=== PATIENT | male | born 1945 | race Caucasian/White ===

== ENCOUNTER 2016-07-31 12:53 | Emergency (ER) | payer MEDICARE, BC ==
--- NOTE | 2016-07-31 10:40 | EDM.PDOC ---
ED HISTORY OF PRESENT ILLNESS - General Chief Complaint: Chest Pain Stated Complaint: AMB Time Seen by Provider: 07/31/16 10:35 Source of Information: Reports: Patient History Limitations: Reports: No limitations - History of Present Illness INITIAL COMMENTS - FREE TEXT/NARRATIVE: Pt states that he had radiation yesterday for cancer and today he had diarrhea and chest pain. States that he called his oncologist and was told to go to ER. denies chest pain currently. States that he just feels tired. Symptom Onset Date: 07/31/16 Timing/Duration: Reports: Resolved prior to arrival Severity: moderate Location, General: Reports: chest Quality: Reports: Ache Improves with: Reports: Rest Associated Symptoms (General): Reports: shortness of breath, other (diarrhea) - Related Data Allergies/ADRs: Allergies Allergy/AdvReac Type Severity Reaction Status Date / Time No Known Allergies Allergy Verified 07/31/16 10:50 Home Meds: Home Meds Ascorbic Acid [Vitamin C] 1,000 mg PO .Q48H 06/07/13 [History] Aspirin [Carlie Chewable Aspirin] 81 mg PO DAILY 06/07/13 [History] Benazepril [Lotensin] 20 mg PO DAILY 06/07/13 [History] Multivitamin [Multivitamins] 1 each PO DAILY 06/07/13 [History] NIFEdipine [Procardia XL] 90 mg PO DAILY 06/07/13 [History] Vitamin E 400 unit PO DAILY 06/07/13 [History] glipiZIDE [Glucotrol] 5 mg PO DAILY 06/07/13 [History] Metoprolol Tartrate 50 mg PO BID 05/12/16 [History] Simvastatin [Zocor] 40 mg PO BEDTIME 05/12/16 [History] Testosterone Cypionate [Depo-Testosterone] 200 mg IM .ONCE A MONTH 05/12/16 [ History] Past Medical History HEENT History: Reports: Hard of hearing Cardiovascular History: Reports: Hypertension Gastrointestinal History: Reports: GERD Genitourinary History: Reports: Other (see below) Other Genitourinary History: 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 Endocrine/Metabolic History: Reports: Diabetes, type II - Past Surgical History GI Surgical History: Reports: Appendectomy Musculoskeletal Surgical History: Reports: Other (see below) Other Musculoskeletal Surgeries/Procedures:: back surgery Social & Family History - Family History Family Medical History: Noncontributory - Tobacco Use Smoking Status *Q: Former Smoker Years of Tobacco use: 30 Packs/Tins Daily: 1 Second Hand Smoke Exposure: No - Caffeine Use Caffeine Use: Reports: Coffee, Soda, Tea - Alcohol Use Days Per Week of Alcohol Use: 7 Number of Drinks Per Day: 1 Total Drinks Per Week: 7 - Recreational Drug Use Recreational Drug Use: No Drug Use in Last 12 Months: No ED ROS GENERAL - Review of Systems Review Of Systems: See Below Constitutional: Reports: malaise, fatigue Respiratory: Reports: Shortness of Breath Cardiovascular: Reports: Chest pain GI/Abdominal: Reports: Diarrhea ED EXAM, GENERAL - Physical Exam Exam: See Below Exam Limited By: No limitations General Appearance: alert, WD/WN, no apparent distress Respiratory/Chest: no respiratory distress, lungs clear, normal breath sounds, no accessory muscle use, chest non-tender Cardiovascular: normal peripheral pulses, regular rate, rhythm, no edema, no gallop, no JVD, no murmur, no rub Peripheral Pulses: 4+: dorsalis pedis (L), dorsalis pedis (R) GI/Abdominal: normal bowel sounds, soft, non tender, no organomegaly, no distention, no abnormal bruit, no mass Neurological: alert, oriented, CN II-XII intact, normal cognition, no motor/ sensory deficits Skin Exam: Warm, Dry, Intact, Normal color, No rash Course - Vital Signs Last Recorded V/S: Last Vital Signs Temp 97.6 F 07/31/16 10:05 Pulse 111 H 07/31/16 10:05 Resp 20 07/31/16 10:05 BP 91/54 L 07/31/16 10:05 Pulse Ox 89 L 07/31/16 10:05 - Orders/Labs/Meds Orders: Active Orders 24 hr Category Date Time Status Cardiac Monitoring [RC] . DIRECTED Care 07/31/16 10:27 Active EKG 12 Lead [EKG Documentation Completion] [RC] STAT Care 07/31/16 11:23 Active EKG Documentation Completion [RC] STAT Care 07/31/16 10:27 Active CULTURE BLOOD [BC] Stat Lab 07/31/16 10:46 Received CULTURE BLOOD [BC] Stat Lab 07/31/16 10:51 Received UA W/MICROSCOPIC [URIN] Stat Lab 07/31/16 10:27 Uncollected Ciprofloxacin in D5W [Cipro in D5W 400 MG/200 ML] 400 Med 07/31/16 12:45 Ordered mg Premix Bag 1 bag IV ONETIME Sodium Chloride 0.9% [Normal Saline] 1,000 ml Med 07/31/16 12:14 Active IV .BOLUS Sodium Chloride 0.9% [Normal Saline] 1,000 ml Med 07/31/16 11:25 Active IV ONETIME Sodium Chloride 0.9% [Saline Flush] Med 07/31/16 10:27 Active 10 ml FLUSH ASDIRECTED PRN Blood Culture x2 Reflex Set [OM.PC] Stat Oth 07/31/16 10:38 Ordered Saline Lock Insert [OM.PC] Stat Ot 07/31/16 10:27 Ordered Medication Orders Sodium Chloride (Normal Saline) 1,000 mls @ 50 mls/hr IV ONETIME ONE Stop: 08/01/16 07:24 Sodium Chloride (Normal Saline) 1,000 mls @ 999 mls/hr IV .BOLUS ONE Stop: 07/31/16 13:14 Last Admin: 07/31/16 12:16 Dose: 999 mls/hr Ciprofloxacin/Dextrose 400 mg/ (Premix) 200 mls @ 200 mls/hr IV ONETIME ONE Stop: 07/31/16 13:44 Sodium Chloride (Saline Flush) 10 ml FLUSH ASDIRECTED PRN PRN Reason: Keep Vein Open Labs: Laboratory Tests 07/31/16 07/31/16 07/31/16 Range/Units 10:38 10:38 10:38 WBC 9.1 (5.0-10.0) 10^3/uL RBC 4.42 L (4.6-6.2) 10^6/uL Hgb 14.3 (14.0-18.0) g/dL Hct 42.1 (40.0-54.0) % MCV 95.2 (80-100) fL MCH 32.4 (27.0-34.0) pg MCHC 34.0 (33.0-35.0) g/dL Plt Count 148 L (150-450) 10^3/uL Neut % (Auto) 90.6 H (42.2-75.2) % Lymph % (Auto) 4.3 L (20.5-50.1) % [place] % (Auto) 4.3 (2-8) % Eos % (Auto) 0.7 L (1.0-3.0) % Baso % (Auto) 0.1 (0.0-1.0) % PT 9.7 (9.0-12.0) SEC INR 1.0 (0.9-1.2) APTT 22.0 (22.0-34.0) SEC Sodium 141 (135-145) mmol/L Potassium 3.2 L (3.6-5.0) mmol/L Chloride 109 (101-111) mmol/L Carbon Dioxide 22.0 (21.0-31.0) mmol/L Anion Gap 13.2 BUN 24 H (7-18) mg/dL Creatinine 1.2 (0.6-1.3) mg/dL Est Cr Clr Drug Dosing 64.72 mL/min Estimated GFR (MDRD) 60 Glucose 194 H (74-105) mg/dL Lactic Acid (0.5-2.2) mmol/L Calcium 8.3 L (8.4-10.2) mg/dl Phosphorus 2.0 L (2.5-4.6) mg/dL Magnesium 1.6 L (1.8-2.5) mg/dL Creatine Kinase (26-174) IU/L Creatine Kinase Index (0-2.4) % CK-MB (CK-2) (0.4-4.7) ng/mL Troponin I 0.04 H* (0.00-0.02) ng/ml B-Natriuretic Peptide 54 (0-100) pg/ml 07/31/16 07/31/16 Range/Units 10:38 10:38 WBC (5.0-10.0) 10^3/uL RBC (4.6-6.2) 10^6/uL Hgb (14.0-18.0) g/dL Hct (40.0-54.0) % MCV (80-100) fL MCH (27.0-34.0) pg MCHC (33.0-35.0) g/dL Plt Count (150-450) 10^3/uL Neut % (Auto) (42.2-75.2) % Lymph % (Auto) (20.5-50.1) % [place] % (Auto) (2-8) % Eos % (Auto) (1.0-3.0) % Baso % (Auto) (0.0-1.0) % PT (9.0-12.0) SEC INR (0.9-1.2) APTT (22.0-34.0) SEC Sodium (135-145) mmol/L Potassium (3.6-5.0) mmol/L Chloride (101-111) mmol/L Carbon Dioxide (21.0-31.0) mmol/L Anion Gap BUN (7-18) mg/dL Creatinine (0.6-1.3) mg/dL Est Cr Clr Drug Dosing mL/min Estimated GFR (MDRD) Glucose (74-105) mg/dL Lactic Acid 2.7 H (0.5-2.2) mmol/L Calcium (8.4-10.2) mg/dl Phosphorus (2.5-4.6) mg/dL Magnesium (1.8-2.5) mg/dL Creatine Kinase 20 L (26-174) IU/L Creatine Kinase Index 4.0 H (0-2.4) % CK-MB (CK-2) 0.80 (0.4-4.7) ng/mL Troponin I (0.00-0.02) ng/ml B-Natriuretic Peptide (0-100) pg/ml Meds: Medications Generic Name Dose Route Start Last Admin Trade Name Freq PRN Reason Stop Dose Admin Sodium Chloride 1,000 mls @ 50 mls/hr 07/31/16 11:25 Normal Saline IV 08/01/16 07:24 ONETIME ONE Sodium Chloride 1,000 mls @ 999 mls/hr 07/31/16 12:14 07/31/16 12:16 Normal Saline IV 07/31/16 13:14 999 mls/hr .BOLUS ONE Administration Ciprofloxacin/Dextrose 400 mg/ 200 mls @ 200 mls/hr 07/31/16 12:45 Premix IV 07/31/16 13:44 ONETIME ONE Sodium Chloride 10 ml 07/31/16 10:27 Saline Flush FLUSH ASDIRECTED PRN Keep Vein Open Discontinued Medications Generic Name Dose Route Start Last Admin Trade Name Freq PRN Reason Stop Dose Admin Aspirin 324 mg 07/31/16 10:27 07/31/16 11:16 Aspirin PO 07/31/16 10:28 324 mg ONETIME ONE Administration Sodium Chloride 1,000 mls @ 1,000 mls/hr 07/31/16 10:27 07/31/16 10:20 Normal Saline IV 07/31/16 11:26 1,000 mls/hr .BOLUS ONE Administration - Radiology Interpretation Free Text/Narrative:: No acute findings - Re-Assessments/Exams Free Text/Narrative Re-Assessment/Exam: 07/31/16 12:[address] Jackson at [facility] who will accept pt for severe dehydration. Departure - Departure Time of Disposition: 12:48 Disposition: DC/Tfer to [facility] 02 Reason for Transfer *Q: Primary PCI Indicated Condition: good Clinical Impression: Dehydration, severe Forms: ED Department Discharge, Interfacility Transfer EMTALA, ED Summary Discharge - My Orders Last 24 Hours: My Active Orders 07/31/16 10:27 Cardiac Monitoring [RC] . DIRECTED EKG Documentation Completion [RC] STAT UA W/MICROSCOPIC [URIN] Stat Sodium Chloride 0.9% [Saline Flush] 10 ml FLUSH ASDIRECTED PRN Saline Lock Insert [OM.PC] Stat 07/31/16 10:38 Blood Culture x2 Reflex Set [OM.PC] Stat 07/31/16 10:46 CULTURE BLOOD [BC] Stat 07/31/16 10:51 CULTURE BLOOD [BC] Stat 07/31/16 11:23 EKG 12 Lead [EKG Documentation Completion] [RC] STAT 07/31/16 11:25 Sodium Chloride 0.9% [Normal Saline] 1,000 ml IV ONETIME 07/31/16 12:14 Sodium Chloride 0.9% [Normal Saline] 1,000 ml IV .BOLUS 07/31/16 12:45 Ciprofloxacin in D5W [Cipro in D5W 400 MG/200 ML] 400 mg Premix Bag 1 bag IV ONETIME - Assessment/Plan Last 24 Hours: My Active Orders 07/31/16 10:27 Cardiac Monitoring [RC] . DIRECTED EKG Documentation Completion [RC] STAT UA W/MICROSCOPIC [URIN] Stat Sodium Chloride 0.9% [Saline Flush] 10 ml FLUSH ASDIRECTED PRN Saline Lock Insert [OM.PC] Stat 07/31/16 10:38 Blood Culture x2 Reflex Set [OM.PC] Stat 07/31/16 10:46 CULTURE BLOOD [BC] Stat 07/31/16 10:51 CULTURE BLOOD [BC] Stat 07/31/16 11:23 EKG 12 Lead [EKG Documentation Completion] [RC] STAT 07/31/16 11:25 Sodium Chloride 0.9% [Normal Saline] 1,000 ml IV ONETIME 07/31/16 12:14 Sodium Chloride 0.9% [Normal Saline] 1,000 ml IV .BOLUS 07/31/16 12:45 Ciprofloxacin in D5W [Cipro in D5W 400 MG/200 ML] 400 mg Premix Bag 1 bag IV ONETIME
--- NOTE | 2016-07-31 12:02 | CR ---
Clinical history: 71-year-old male chest pain. Interpretation: Generally poor inspiratory effort and some platelike atelectasis in the bases. Normal cardiac silhouette without alveolar edema or dependent effusion. No lung mass, hilar lymphadenopathy or focal lobar pneumonia. No pneumothorax. CONCLUSION: No acute new cardiopulmonary abnormality since CT scan chest 13 May 2016.
[~2016-07-31 12:53] MED LIST: Aspirin 81 MG Tab.Chew PO ONE; Ciprofloxacin in D5W 400 MG in Premix Bag 1 BAG IV ONE; Sodium Chloride 0.9% 1,000 ML IV ONE; Sodium Chloride 0.9% 10 ML Syringe FLUSH PRN
[2016-07-31 12:55] VITALS: BP 91/51
--- NOTE | 2016-09-22 12:20 | EKG ---
07/31/2016 - PADMINI FRANKS - EKG is sinus rhythm with a rate of 89. 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 IMPRESSION: Abnormal EKG as noted above. [facility] /[id number]
--- NOTE | 2016-09-22 12:20 | EKG ---
07/31/2016 - PADMINI FRANKS - TIME: 1035 hours. EKG is sinus rhythm with a rate of 100. Normal SD interval. There is a left axis deviation. There is a right bundle-branch block, and left anterior fascicular block. Abnormal EKG as noted above. [facility] /[id number]
== END 2016-07-31 13:15 ==
LOC: DL.ED 12:53
DX: R19.7 Diarrhea, unspecified (principal); K21.9 Gastro-esophageal reflux disease without esophagitis; E11.9 Type 2 diabetes mellitus without complications; I10 Essential (primary) hypertension; Z87.891 Personal history of nicotine dependence; Z79.899 Other long term (current) drug therapy
CPT/HCPCS: 36415; 71010; 80048; 82550; 82553; 83605; 83735; 83880; 84100; 84484; 85025; 85610; 85730; 87040; 93005; 96361; 96374; 99285; A9270; J0744; J7030; J7050; 93010; 99284

== ENCOUNTER 2017-04-19 13:42 | Emergency (ER) | payer MEDICARE, BC ==
--- NOTE | 2017-04-19 15:35 | EDM.PDOC ---
ED HPI GENERAL MEDICAL PROBLEM - General Chief Complaint: Flank Pain Stated Complaint: [id number] SLIPPED AND HURT RIBS Time Seen by Provider: 04/19/17 15:20 Source of Information: Reports: Patient History Limitations: Reports: No Limitations - History of Present Illness INITIAL COMMENTS - FREE TEXT/NARRATIVE: This 72 yo male patient reports to the ED with right rib/side pain due to a fall 2 days ago. Onset Date: 04/17/17 Duration: Constant Location: Reports: Chest (right ribs ) Quality: Reports: Ache, Dull Severity: Moderate Improves with: Reports: Rest Worsens with: Reports: Movement Context: Reports: Trauma (fall ) Associated Symptoms: Reports: No Other Symptoms Right Chest Pain Score (Numeric/FACES): 6 - Related Data Allergies Allergy/AdvReac Type Severity Reaction Status Date / Time No Known Allergies Allergy Verified 12/04/16 16:46 Home Meds: Home Meds Aspirin [Carlie Chewable Aspirin] 81 mg PO DAILY 06/07/13 [History] Benazepril [Lotensin] 10 mg PO BID 06/07/13 [History] Multivitamin [Multivitamins] 1 each PO DAILY 06/07/13 [History] NIFEdipine [Procardia XL] 30 mg PO BID 06/07/13 [History] glipiZIDE [Glucotrol] 10 mg PO BID 06/07/13 [History] Metoprolol Tartrate 50 mg PO BID 05/12/16 [History] Simvastatin [Zocor] 40 mg PO BEDTIME 05/12/16 [History] Docusate Sodium [Colace] 200 mg PO BID 12/04/16 [History] Methylphenidate HCl [Methylphenidate ER] 10 mg PO DAILY 04/19/17 [History] Pantoprazole [ProTONIX IV] 40 mg PO DAILY 04/19/17 [History] metFORMIN HCl [Metformin HCl] 500 mg PO BEDTIME 04/19/17 [History] Past Medical History HEENT History: Reports: Hard of Hearing, Impaired Vision Cardiovascular History: Reports: High Cholesterol, Hypertension Gastrointestinal History: Reports: GERD Genitourinary History: Reports: Other (See Below) Other Genitourinary History: removal of tumor from a kidney Endocrine/Metabolic History: Reports: Diabetes, Type II Oncologic (Cancer) History: Reports: Brain - Past Surgical History GI Surgical History: Reports: Appendectomy Musculoskeletal Surgical History: Reports: Other (See Below) Other Musculoskeletal Surgeries/Procedures:: weakness, back surgery Social & Family History - Family History Family Medical History: Noncontributory - Tobacco Use Smoking Status *Q: Light Tobacco Smoker Years of Tobacco use: 5 Packs/Tins Daily: 1 Used Tobacco, but Quit: Yes Month Tobacco Last Used: 12 Second Hand Smoke Exposure: No - Caffeine Use Caffeine Use: Reports: Coffee, Soda - Alcohol Use Days Per Week of Alcohol Use: 7 Number of Drinks Per Day: 1 Total Drinks Per Week: 7 - Recreational Drug Use Recreational Drug Use: No Drug Use in Last 12 Months: No Review of Systems - Review of Systems Review Of Systems: ROS reveals no pertinent complaints other than HPI. ED EXAM, GENERAL - Physical Exam Exam: See Below Exam Limited By: No Limitations General Appearance: Alert, WD/WN, Moderate Distress Eye Exam: Bilateral Eye: EOMI, Normal Inspection, PERRL Ears: Normal External Exam, Normal Canal, Hearing Grossly Normal, Normal TMs Nose: Normal Inspection, Normal Mucosa, No Blood Throat/Mouth: Normal Inspection, Normal Lips, Normal Teeth, Normal Gums, Normal Oropharynx, Normal Voice, No Airway Compromise Head: Atraumatic, Normocephalic Neck: Normal Inspection, Supple, Non-Tender, Full Range of Motion Respiratory/Chest: No Respiratory Distress, Lungs Clear, Normal Breath Sounds, No Accessory Muscle Use, Other (right rib tenderness ) Cardiovascular: Normal Peripheral Pulses, Regular Rate, Rhythm, No Edema, No Gallop, No JVD, No Murmur, No Rub GI/Abdominal: Normal Bowel Sounds, Soft, Non-Tender, No Organomegaly, No Distention, No Abnormal Bruit, No Mass (Male) Exam: Deferred Rectal (Males) Exam: Deferred Back Exam: Normal Inspection, Full Range of Motion, NT Extremities: Normal Inspection, Normal Range of Motion, Non-Tender, Normal Capillary Refill, No Pedal Edema Neurological: Alert, Oriented, CN II-XII Intact, Normal Cognition, Normal Gait, Normal Reflexes, No Motor/Sensory Deficits Psychiatric: Normal Affect, Normal Mood Skin Exam: Warm, Dry, Intact, Normal Color, No Rash Lymphatic: No Adenopathy Course - Vital Signs Last Recorded V/S: Last Vital Signs Temp 36.3 C 04/19/17 16:09 Pulse 65 04/19/17 16:09 Resp 16 04/19/17 16:09 BP 129/74 04/19/17 16:09 Pulse Ox 95 04/19/17 16:09 Departure - Departure Time of Disposition: 16:48 Disposition: Home, Self-Care 01 Condition: Fair Clinical Impression: Contusion of rib on right side Qualifiers: Encounter type: initial encounter Qualified Code(s): S20.211A - Contusion of right front wall of thorax, initial encounter - Discharge Information Instructions: Chest Contusion, [id number] Forms: ED Department Discharge Care Plan Goals: The patient was advised of the examination and x-ray results during the visit. The patient was encouraged to continue to be active. If the patient has any additional symptoms or concerns, the patient should follow-up with his primary care facility or return to the emergency department.
--- NOTE | 2017-04-19 16:01 | CR ---
Clinical history: 72-year-old male injured right chest with a fall (rib pain). Interpretation: PA chest and right rib detail films (x2) demonstrate generally poor inspiratory effor t but no sign of acute right rib fracture, underlying lung contusion, ipsilateral dependent pleural e ffusion or right-sided pneumothorax. Multilevel disc disease and chronic arthritic changes of the spine. Left supra clavicular central venous line crosses the midline with the tip directed toward the right atrium. Normal cardiac silhouette without alveolar edema (subtle blunting of the right costophrenic s ulcus). Some lingular scarring or atelectasis. No lung mass or focal lobar pneumonia. CONCLUSION: No new signs of right rib fracture, lung contusion or right pneumothorax when compared to 31 July AP film.
[2017-04-19 16:10] VITALS: BP 129/74
== END 2017-04-19 16:52 | disposition home or self-care (01) ==
LOC: DL.ED 13:42
DX: S20.211A Contusion of right front wall of thorax, initial encounter (principal); I10 Essential (primary) hypertension; E78.00 Pure hypercholesterolemia, unspecified; K21.9 Gastro-esophageal reflux disease without esophagitis; E11.9 Type 2 diabetes mellitus without complications; F17.210 Nicotine dependence, cigarettes, uncomplicated; Z79.84 Long term (current) use of oral hypoglycemic drugs; Z79.82 Long term (current) use of aspirin; Z79.899 Other long term (current) drug therapy; W01.0XXA Fall on same level from slipping, tripping and stumbling without subsequent striking against object, initial encounter
CPT/HCPCS: 71101-RT; 99282; 99283

== ENCOUNTER 2017-06-14 16:53 | Emergency (ER) | payer MEDICARE, BC ==
[2017-06-14 16:59] VITALS: BP 152/78
[2017-06-14] MEDS ORDERED: Magnesium Citrate Solution 296 ML Bottle PO ONE (18:33)
--- NOTE | 2017-06-14 18:56 | EDM.PDOC ---
Scribed by Patrica Harvey 06/14/17 [id number] for Terrence Espinoza MD ED HPI GENERAL MEDICAL PROBLEM - General Chief Complaint: Gastrointestinal Problem Stated Complaint: CONSTIPATION/ CANT PEE Time Seen by Provider: 06/14/17 17:06 Source of Information: Reports: Patient, RN, RN Notes Reviewed History Limitations: Reports: No Limitations - History of Present Illness INITIAL COMMENTS - FREE TEXT/NARRATIVE: C/O unable to pass urine for past 8 hrs, and constipated with last BM 5 days ago. Onset: Gradual Duration: Constant Location: Reports: Abdomen Quality: Reports: Pressure Severity: Severe Improves with: Reports: None Worsens with: Reports: None Associated Symptoms: Reports: No Other Symptoms - Related Data Allergies Allergy/AdvReac Type Severity Reaction Status Date / Time No Known Allergies Allergy Verified 06/14/17 16:58 Home Meds: Home Meds Aspirin [Carlie Chewable Aspirin] 81 mg PO DAILY 06/07/13 [History] Benazepril [Lotensin] 10 mg PO BID 06/07/13 [History] Multivitamin [Multivitamins] 1 each PO DAILY 06/07/13 [History] NIFEdipine [Procardia XL] 30 mg PO BID 06/07/13 [History] glipiZIDE [Glucotrol] 10 mg PO BID 06/07/13 [History] Metoprolol Tartrate 50 mg PO BID 05/12/16 [History] Simvastatin [Zocor] 40 mg PO DAILY 05/12/16 [History] Docusate Sodium [Colace] 200 mg PO BID 12/04/16 [History] Methylphenidate HCl [Methylphenidate ER] 10 mg PO BID 04/19/17 [History] Pantoprazole [ProTONIX IV] 40 mg PO DAILY 04/19/17 [History] metFORMIN HCl [Metformin HCl] 500 mg PO BEDTIME 04/19/17 [History] Past Medical History HEENT History: Reports: Hard of Hearing, Impaired Vision Cardiovascular History: Reports: High Cholesterol, Hypertension Gastrointestinal History: Reports: GERD Genitourinary History: Reports: Other (See Below) Other Genitourinary History: removal of tumor from a kidney Neurological History: Reports: Other (See Below) (Terminal brain tumor: Glioblastoma multiformi) Endocrine/Metabolic History: Reports: Diabetes, Type II Oncologic (Cancer) History: Reports: Brain - Past Surgical History GI Surgical History: Reports: Appendectomy Musculoskeletal Surgical History: Reports: Other (See Below) Other Musculoskeletal Surgeries/Procedures:: weakness, back surgery Social & Family History - Family History Family Medical History: Noncontributory - Tobacco Use Smoking Status *Q: Light Tobacco Smoker Years of Tobacco use: 5 Packs/Tins Daily: 1 Used Tobacco, but Quit: Yes Month Tobacco Last Used: 12 Second Hand Smoke Exposure: No - Caffeine Use Caffeine Use: Reports: Coffee, Soda - Alcohol Use Days Per Week of Alcohol Use: 7 Number of Drinks Per Day: 1 Total Drinks Per Week: 7 - Recreational Drug Use Recreational Drug Use: No Drug Use in Last 12 Months: No ED ROS GENERAL - Review of Systems Review Of Systems: ROS reveals no pertinent complaints other than HPI. ED EXAM, GI/ABD - Physical Exam Exam: See Below General Appearance: Alert, No Apparent Distress Head: Atraumatic, Normocephalic Neck: Normal Inspection Respiratory/Chest: No Respiratory Distress, Lungs Clear, Normal Breath Sounds, No Accessory Muscle Use, Chest Non-Tender Cardiovascular: Normal Peripheral Pulses, Regular Rate, Rhythm, No Edema, No Gallop, No JVD, No Murmur, No Rub GI/Abdominal Exam: Normal Bowel Sounds, Soft, No Distention, Tender (suprapubic) . No: Guarding, Rigid, Rebound (Male) Exam: Normal Inspection Rectal (Males) Exam: Deferred Back Exam: Normal Inspection. No: CVA Tenderness (L), CVA Tenderness (R) Extremities: Normal Inspection Neurological: Alert, No Motor/Sensory Deficits Psychiatric: Normal Mood Skin Exam: Warm, Dry, Intact, Normal Color, No Rash Course - Vital Signs Last Recorded V/S: Last Vital Signs Temp 36.1 C 06/14/17 16:55 Pulse 65 06/14/17 16:55 Resp 18 06/14/17 16:55 BP 152/78 H 06/14/17 16:55 Pulse Ox 96 06/14/17 16:55 - Orders/Labs/Meds Orders: Active Orders 24 hr Category Date Time Status Gonzalez Catheter Insertion [Insert Urinary Catheter] [OM. Care 06/14/17 17:30 Ordered PC] Q24H CULTURE URINE [RM] Stat Lab 06/14/17 17:25 Received Labs: Laboratory Tests 06/14/17 Range/Units 17:25 Urine Color Yellow (YELLOW) Urine Appearance Slightly cloudy (CLEAR) Urine pH 6.0 (5.0-9.0) Ur Specific [place] 1.020 (1.005-1.030) Urine Protein >=300 H (NEGATIVE) Urine Glucose (UA) 100 H (NEGATIVE) Urine Ketones Negative (NEGATIVE) Urine Occult Blood Negative (NEGATIVE) Urine Nitrite Negative (NEGATIVE) Urine Bilirubin Negative (NEGATIVE) Urine Urobilinogen 0.2 (0.2-1.0) mg/dL Ur Leukocyte Esterase Negative (NEGATIVE) Urine RBC 0-5 /HPF Urine WBC 0-5 (0-5/HPF) /HPF Ur Epithelial Cells Not seen /HPF Urine Bacteria Few (0-FEW/HPF) /HPF Hyaline Casts Few H /LPF Urine Mucus Few H /LPF Meds: Medications Discontinued Medications Generic Name Dose Route Start Last Admin Trade Name Freq PRN Reason Stop Dose Admin Magnesium Citrate 300 ml 06/14/17 18:33 Citrate Of Magnesia PO 06/14/17 18:34 ONETIME ONE - Radiology Interpretation Free Text/Narrative:: X-ray abdomen: Air-fluid levels in the colon which could be secondary to colon ileus. No definite sign of obstruction or fecal impaction. See rad report. - Re-Assessments/Exams Free Text/Narrative Re-Assessment/Exam: 06/14/17 18:[address] by RN. Departure - Departure Time of Disposition: 18:37 Disposition: Home, Self-Care 01 Condition: Fair Clinical Impression: Urinary retention Constipation Qualifiers: Constipation type: unspecified constipation type Qualified Code(s): K59.00 - Constipation, unspecified - Discharge Information Instructions: Constipation, Adult, Acute Urinary Retention, Male, [id number] Forms: ED Department Discharge Additional Instructions: Follow up in clinic with your doctor in the clinic in 1-2 days for recheck and catheter removal. - My Orders Last 24 Hours: My Active Orders 06/14/17 17:25 CULTURE URINE [RM] Stat 06/14/17 17:30 Gonzalez Catheter Insertion [Insert Urinary Catheter] [OM.PC] Q24H - Assessment/Plan Last 24 Hours: My Active Orders 06/14/17 17:25 CULTURE URINE [RM] Stat 06/14/17 17:30 Gonzalez Catheter Insertion [Insert Urinary Catheter] [OM.PC] Q24H I have read and agree with the documentation that has been completed regarding this visit. By signing this record, I attest that the documentation was completed in my physical presence and is an accurate record of the encounter.
== END 2017-06-14 19:18 | disposition home or self-care (01) ==
LOC: DL.ED 16:53
DX: R33.9 Retention of urine, unspecified (principal); K59.00 Constipation, unspecified; E78.00 Pure hypercholesterolemia, unspecified; I10 Essential (primary) hypertension; E11.9 Type 2 diabetes mellitus without complications; F17.210 Nicotine dependence, cigarettes, uncomplicated; Z79.82 Long term (current) use of aspirin; Z79.899 Other long term (current) drug therapy
CPT/HCPCS: 51702; 74021; 81001; 87086; 99283; 99284; A9270

== ENCOUNTER 2017-06-16 11:40 | Emergency (ER) | payer MEDICARE, BC ==
[2017-06-16 12:29] VITALS: BP 150/91
--- NOTE | 2017-06-16 13:00 | EDM.PDOC ---
ED HPI GENERAL MEDICAL PROBLEM - General Chief Complaint: Genitourinary Problem Stated Complaint: CATHETER REMOVAL Time Seen by Provider: 06/16/17 12:55 Source of Information: Reports: Patient History Limitations: Reports: No Limitations - History of Present Illness INITIAL COMMENTS - FREE TEXT/NARRATIVE: This 72 yo male patient reports to the ED to have his urinary catheter removed. The patient was seen in the ED 2 days ago for constipation and urinary retention. The patient was instructed to follow-up with his primary care facility for catheter removal, but the patient reports his primary care facility is in [place] and "they don't remove catheters" according to the patient. Onset: Today Duration: Chronic Severity: Mild Improves with: Reports: None Worsens with: Reports: None Associated Symptoms: Reports: No Other Symptoms - Related Data Allergies Allergy/AdvReac Type Severity Reaction Status Date / Time No Known Allergies Allergy Verified 06/14/17 16:58 Home Meds: Home Meds Aspirin [Carlie Chewable Aspirin] 81 mg PO DAILY 06/07/13 [History] Benazepril [Lotensin] 10 mg PO BID 06/07/13 [History] Multivitamin [Multivitamins] 1 each PO DAILY 06/07/13 [History] NIFEdipine [Procardia XL] 30 mg PO BID 06/07/13 [History] glipiZIDE [Glucotrol] 10 mg PO BID 06/07/13 [History] Metoprolol Tartrate 50 mg PO BID 05/12/16 [History] Simvastatin [Zocor] 40 mg PO DAILY 05/12/16 [History] Docusate Sodium [Colace] 200 mg PO BID 12/04/16 [History] Methylphenidate HCl [Methylphenidate ER] 10 mg PO BID 04/19/17 [History] Pantoprazole [ProTONIX IV] 40 mg PO DAILY 04/19/17 [History] metFORMIN HCl [Metformin HCl] 500 mg PO BEDTIME 04/19/17 [History] Past Medical History HEENT History: Reports: Hard of Hearing, Impaired Vision Cardiovascular History: Reports: High Cholesterol, Hypertension Gastrointestinal History: Reports: GERD Genitourinary History: Reports: Other (See Below) Other Genitourinary History: removal of tumor from a kidney Neurological History: Reports: Other (See Below) Endocrine/Metabolic History: Reports: Diabetes, Type II Oncologic (Cancer) History: Reports: Brain - Past Surgical History GI Surgical History: Reports: Appendectomy Musculoskeletal Surgical History: Reports: Other (See Below) Other Musculoskeletal Surgeries/Procedures:: weakness, back surgery Social & Family History - Family History Family Medical History: Noncontributory - Tobacco Use Smoking Status *Q: Never Smoker Years of Tobacco use: 5 Packs/Tins Daily: 1 Used Tobacco, but Quit: Yes Month Tobacco Last Used: 12 Second Hand Smoke Exposure: No - Caffeine Use Caffeine Use: Reports: Coffee, Soda - Alcohol Use Days Per Week of Alcohol Use: 7 Number of Drinks Per Day: 1 Total Drinks Per Week: 7 - Recreational Drug Use Recreational Drug Use: No Drug Use in Last 12 Months: No ED ROS GENERAL - Review of Systems Review Of Systems: ROS reveals no pertinent complaints other than HPI. ED EXAM, RENAL/ - Physical Exam Exam: See Below Exam Limited By: No Limitations General Appearance: Alert, WD/WN, No Apparent Distress Eye Exam: Bilateral Eye: EOMI, Normal Inspection, PERRL Ears: Normal External Exam, Normal Canal, Hearing Grossly Normal, Normal TMs Nose: Normal Inspection, Normal Mucosa, No Blood Throat/Mouth: Normal Inspection, Normal Lips, Normal Teeth, Normal Gums, Normal Oropharynx, Normal Voice, No Airway Compromise Head: Atraumatic, Normocephalic Neck: Normal Inspection, Supple, Non-Tender, Full Range of Motion Respiratory/Chest: No Respiratory Distress, Lungs Clear, Normal Breath Sounds, No Accessory Muscle Use, Chest Non-Tender Cardiovascular: Normal Peripheral Pulses GI/Abdominal: Normal Bowel Sounds, Soft, Non-Tender, No Organomegaly, No Distention, No Abnormal Bruit, No Mass (Male) Exam: Deferred Rectal (Males) Exam: Deferred Back Exam: Normal Inspection, Full Range of Motion, NT Extremities: Normal Inspection, Normal Range of Motion, Non-Tender, Normal Capillary Refill, No Pedal Edema Neurological: Alert, Oriented, CN II-XII Intact, Normal Cognition, Normal Gait, Normal Reflexes, No Motor/Sensory Deficits Psychiatric: Normal Affect, Normal Mood Skin Exam: Warm, Dry, Intact, Normal Color, No Rash Lymphatic: No Adenopathy Course - Vital Signs Last Recorded V/S: Last Vital Signs Temp 36.6 C 06/16/17 12:21 Pulse 70 06/16/17 12:21 Resp 16 06/16/17 12:21 BP 150/91 H 06/16/17 12:21 Pulse Ox 97 06/16/17 12:21 Departure - Departure Time of Disposition: 12:58 Disposition: Home, Self-Care 01 Condition: Fair Clinical Impression: Urinary catheter insertion/adjustment/removal - Discharge Information Forms: ED Department Discharge Care Plan Goals: The patient was advised of the examination results during the visit. The urinary catheter was removed during the visit. The patient was encouraged to continue to monitor for any additional symptoms. If the patient has any additional symptoms or further concerns, the patient should follow-up with his primary care facility or return to the emergency department.
== END 2017-06-16 12:58 | disposition home or self-care (01) ==
LOC: DL.ED 11:40
DX: Z46.6 Encounter for fitting and adjustment of urinary device (principal); E78.00 Pure hypercholesterolemia, unspecified; I10 Essential (primary) hypertension; E11.9 Type 2 diabetes mellitus without complications; Z79.82 Long term (current) use of aspirin; Z79.899 Other long term (current) drug therapy; Z87.891 Personal history of nicotine dependence
CPT/HCPCS: 99282

== ENCOUNTER 2017-11-10 14:54 | Emergency (ER) | payer MEDICARE, BC ==
[2017-11-10 15:06] VITALS: BP 159/71
--- NOTE | 2017-11-10 15:17 | EDM.PDOC ---
ED HPI GENERAL MEDICAL PROBLEM - General Chief Complaint: Lower Extremity Injury/Pain Stated Complaint: [id number] SWELLING RIGHT ANKLE Time Seen by Provider: 11/10/17 15:17 Source of Information: Reports: Patient, Old Records, RN, RN Notes Reviewed History Limitations: Reports: No Limitations - History of Present Illness INITIAL COMMENTS - FREE TEXT/NARRATIVE: Pt presents to ER from home by POV with c/o persistent non-painful swelling of the Rt lower leg, and foot. Pt was seen on 10/22/17 and had a venous doppler which was negative for DVT. Pt's is concerned that the Rt lower leg is cooler to touch than the left. Pt states that he has not had any pain to the leg since the onset of the edema. He denies any injury, redness, pallor, rash or ecchymosis. Duration: Week(s): (3+), Constant, Waxing/Waning Location: Reports: Lower Extremity, Right Quality: Reports: Other (denies pain) Severity: Moderate Improves with: Reports: None Worsens with: Reports: None Associated Symptoms: Reports: No Other Symptoms - Related Data Allergies Allergy/AdvReac Type Severity Reaction Status Date / Time No Known Allergies Allergy Verified 11/10/17 14:59 Home Meds: Home Meds Aspirin [Carlie Chewable Aspirin] 81 mg PO DAILY 06/07/13 [History] Benazepril [Lotensin] 10 mg PO BID 06/07/13 [History] Multivitamin [Multivitamins] 1 each PO DAILY 06/07/13 [History] NIFEdipine [Procardia XL] 30 mg PO BID 06/07/13 [History] glipiZIDE [Glucotrol] 10 mg PO BID 06/07/13 [History] Metoprolol Tartrate 50 mg PO BID 05/12/16 [History] Simvastatin [Zocor] 40 mg PO DAILY 05/12/16 [History] Docusate Sodium [Colace] 200 mg PO PRN 12/04/16 [History] Methylphenidate HCl [Methylphenidate ER] 10 mg PO BID 04/19/17 [History] Pantoprazole [ProTONIX IV] 40 mg PO DAILY 04/19/17 [History] metFORMIN HCl [Metformin HCl] 500 mg PO BID 04/19/17 [History] Cholecalciferol (Vitamin D3) [Vitamin D3] 1,000 mg PO DAILY 11/10/17 [History] Past Medical History HEENT History: Reports: Hard of Hearing, Impaired Vision Cardiovascular History: Reports: High Cholesterol, Hypertension Gastrointestinal History: Reports: GERD Genitourinary History: Reports: Renal Disease (Nephrotic syndrome), Other (See Below) Other Genitourinary History: removal of tumor from a kidney Musculoskeletal History: Reports: Back Pain, Chronic Neurological History: Reports: Other (See Below) (GBM) Other Neuro History: brain tumor Psychiatric History: Reports: Other (See Below) Other Psychiatric History: memory loss Endocrine/Metabolic History: Reports: Diabetes, Type II Oncologic (Cancer) History: Reports: Brain (GBM), Other (See Below) Other Oncologic History: left kidney tumor - Infectious Disease History Infectious Disease History: Reports: Other (See Below) Other Infectious Disease History: port-a-cath - Past Surgical History GI Surgical History: Reports: Appendectomy Musculoskeletal Surgical History: Reports: Other (See Below) Other Musculoskeletal Surgeries/Procedures:: weakness, back surgery Social & Family History - Family History Family Medical History: Noncontributory - Tobacco Use Smoking Status *Q: Never Smoker - Caffeine Use Caffeine Use: Reports: Coffee - Recreational Drug Use Recreational Drug Use: No - Living Situation & Occupation Living situation: Reports: , with Spouse Occupation: Retired Review of Systems - Review of Systems Review Of Systems: ROS reveals no pertinent complaints other than HPI. ED EXAM, GENERAL - Physical Exam Exam: See Below Exam Limited By: No Limitations General Appearance: Alert, No Apparent Distress, Other (chronically ill, but non -toxic appearing) Throat/Mouth: Normal Inspection, Normal Lips, Normal Voice, No Airway Compromise Head: Atraumatic, Normocephalic Respiratory/Chest: No Respiratory Distress, Lungs Clear, No Accessory Muscle Use , Decreased Breath Sounds Cardiovascular: Regular Rate, Rhythm Peripheral Pulses: 0: Posterior Tibial (R) (present but faint by doppler), Dorsalis Pedis (R) (present but faint by doppler), 2+: Posterior Tibial (L), Dorsalis Pedis (L) GI/Abdominal: Normal Bowel Sounds, Soft, Non-Tender Extremities: Normal Range of Motion, Pedal Edema (Rt lower ext. from distal lower leg to foot/toes), Slow Capillary Refill (but equal B/L). No: Joint Swelling, Serafin's Sign, Leg Pain, Increased Warmth, Mottled, Pallor, Redness Neurological: Alert, Oriented, Normal Cognition, No Motor/Sensory Deficits Psychiatric: Normal Mood Skin Exam: Warm, Dry, Intact, Normal Color, No Rash Course - Vital Signs Last Recorded V/S: Last Vital Signs Temp 37.1 C 11/10/17 15:05 Pulse 62 11/10/17 15:05 Resp 18 11/10/17 15:05 BP 159/71 H 11/10/17 15:05 Pulse Ox 95 11/10/17 15:05 - Orders/Labs/Meds Orders: Active Orders 24 hr Category Date Time Status DME for Discharge [COMM] Routine Oth 11/10/17 15:49 Ordered - Re-Assessments/Exams Free Text/Narrative Re-Assessment/Exam: 11/10/17 16:[address] Sinha to discuss the pt's findings. He states the pt has risk of edema from Ca++ channel luis, proteinuria, and avastin tx. Pt has been r/o for DVT previously. I do not find acute arterial insuff. to be likely given nl temp., nl color, and no pain. Dr. Sinha will f/u with the pt in clinic. Pt's is instructed to call Dr. Sinha. Departure - Departure Time of Disposition: 15:52 Disposition: Home, Self-Care 01 Condition: Good Clinical Impression: Edema of right lower extremity, Arterial insufficiency of lower extremity, History of nephrotic syndrome - Discharge Information Instructions: Peripheral Vascular Disease, [id number], Peripheral Edema Forms: ED Department Discharge Additional Instructions: Use [employer] compression, or knee high compression stockings to reduce edema. Put on in the morning and remove at bed time. Call Dr. Sinha to arrange further evaluation of blood flow to the right leg. - My Orders Last 24 Hours: My Active Orders 11/10/17 15:49 DME for Discharge [COMM] Routine - Assessment/Plan Last 24 Hours: My Active Orders 11/10/17 15:49 DME for Discharge [COMM] Routine
== END 2017-11-10 15:58 | disposition home or self-care (01) ==
LOC: DL.ED 14:54
DX: I77.1 Stricture of artery (principal); E78.00 Pure hypercholesterolemia, unspecified; I10 Essential (primary) hypertension; K21.9 Gastro-esophageal reflux disease without esophagitis; E11.9 Type 2 diabetes mellitus without complications; Z87.441 Personal history of nephrotic syndrome; Z79.82 Long term (current) use of aspirin; Z79.899 Other long term (current) drug therapy; Z79.84 Long term (current) use of oral hypoglycemic drugs
CPT/HCPCS: 99284

== ENCOUNTER 2018-07-21 13:56 | Inpatient (IN) | payer MEDICARE, BC ==
--- NOTE | 2018-07-21 14:51 | EDM.PDOC ---
ED HPI GENERAL MEDICAL PROBLEM - General Stated Complaint: DR RODRIGUEZ TO ER Time Seen by Provider: 07/21/18 14:40 Source of Information: Reports: Patient History Limitations: Reports: Other - History of Present Illness INITIAL COMMENTS - FREE TEXT/NARRATIVE: This 73 yo male patient was sent to the ED by Dr. Grove due to swelling in his upper extremities with possible infection. The patient's reports the patient's arms looked normal yesterday, but she noticed increased redness today. The patient was placed in a snf 1 month ago after being discharged from the hospital for low potassium levels after receiving increased diuretics. Onset: Today Duration: Constant Location: Reports: Upper Extremity, Left, Upper Extremity, Right Quality: Reports: Other Severity: Moderate Improves with: Reports: None Worsens with: Reports: None Associated Symptoms: Reports: No Other Symptoms - Related Data Allergies Allergy/AdvReac Type Severity Reaction Status Date / Time No Known Allergies Allergy Verified 04/26/18 13:16 Home Meds: Home Meds Aspirin [Carlie Chewable Aspirin] 81 mg PO DAILY 06/07/13 [History] Benazepril [Lotensin] 10 mg PO BID 06/07/13 [History] Multivitamin [Multivitamins] 1 each PO DAILY 06/07/13 [History] glipiZIDE [Glucotrol] 10 mg PO BID 06/07/13 [History] Metoprolol Tartrate 50 mg PO BID 05/12/16 [History] Simvastatin [Zocor] 40 mg PO DAILY 05/12/16 [History] metFORMIN HCl [Metformin HCl] 500 mg PO BIDMEALS 04/19/17 [History] Cholecalciferol (Vitamin D3) [Vitamin D3] 1,000 mg PO DAILY 11/10/17 [History] Bevacizumab [Avastin] 1,000 mg IV Q14D 04/20/18 [History] Dexamethasone 2 mg PO BID 04/20/18 [History] Pantoprazole [ProTONIX] 40 mg PO DAILY 04/20/18 [History] levETIRAcetam [Keppra] 500 mg PO DAILY 04/20/18 [History] Methylphenidate [Ritalin] 10 mg PO QPM 04/26/18 [History] Methylphenidate [Ritalin] 20 mg PO QAM 04/26/18 [History] NIFEdipine [Procardia XL] 30 mg PO BID 04/26/18 [History] Past Medical History HEENT History: Reports: Hard of Hearing, Impaired Vision Cardiovascular History: Reports: High Cholesterol, Hypertension Gastrointestinal History: Reports: GERD Genitourinary History: Reports: Renal Disease, Other (See Below) Other Genitourinary History: removal of tumor from a kidney Musculoskeletal History: Reports: Back Pain, Chronic Neurological History: Reports: Other (See Below) Other Neuro History: brain tumor Psychiatric History: Reports: Other (See Below) Other Psychiatric History: memory loss Endocrine/Metabolic History: Reports: Diabetes, Type II Oncologic (Cancer) History: Reports: Brain, Other (See Below) Other Oncologic History: left kidney tumor, stage four glioblastoma Dermatologic History: Reports: Cellulitis - Infectious Disease History Infectious Disease History: Reports: None Other Infectious Disease History: port-a-cath - Past Surgical History HEENT Surgical History: Reports: Other (See Below) Other HEENT Surgeries/Procedures: brain biopsy Cardiovascular Surgical History: Reports: None GI Surgical History: Reports: Appendectomy Male Surgical History: Reports: None Endocrine Surgical History: Reports: None Neurological Surgical History: Reports: None Oncologic Surgical History: Reports: Other (See Below) Other Oncologic Surgeries/Procedures: bipsies Social & Family History - Family History Family Medical History: Noncontributory - Tobacco Use Smoking Status *Q: Never Smoker Second Hand Smoke Exposure: No - Caffeine Use Caffeine Use: Reports: Coffee - Recreational Drug Use Recreational Drug Use: No - Living Situation & Occupation Living situation: Reports: , with Spouse Occupation: Retired ED ROS GENERAL - Review of Systems Review Of Systems: ROS reveals no pertinent complaints other than HPI. ED EXAM, GENERAL - Physical Exam Exam: See Below Exam Limited By: No Limitations General Appearance: Alert, WD/WN, No Apparent Distress Eye Exam: Bilateral Eye: EOMI, Normal Inspection, PERRL Ears: Normal External Exam, Normal Canal, Hearing Grossly Normal, Normal TMs Nose: Normal Inspection, Normal Mucosa, No Blood Throat/Mouth: Normal Inspection, Normal Lips, Normal Teeth, Normal Gums, Normal Oropharynx, Normal Voice, No Airway Compromise Head: Atraumatic, Normocephalic Neck: Normal Inspection, Supple, Non-Tender, Full Range of Motion Respiratory/Chest: No Respiratory Distress, Lungs Clear, Normal Breath Sounds, No Accessory Muscle Use, Chest Non-Tender Cardiovascular: Normal Peripheral Pulses, Regular Rate, Rhythm, No Edema, No Gallop, No JVD, No Murmur, No Rub GI/Abdominal: Normal Bowel Sounds, Soft, Non-Tender, No Organomegaly, No Distention, No Abnormal Bruit, No Mass Rectal (Males) Exam: Deferred Back Exam: Normal Inspection, Full Range of Motion, NT Extremities: Normal Inspection, Normal Range of Motion, Non-Tender, Normal Capillary Refill, No Pedal Edema Neurological: Alert, Oriented, CN II-XII Intact, Normal Cognition, Normal Gait, Normal Reflexes, No Motor/Sensory Deficits Psychiatric: Normal Affect, Normal Mood Skin Exam: Warm, Dry, Intact, Normal Color, No Rash Lymphatic: No Adenopathy Course - Vital Signs Last Recorded V/S: Last Vital Signs Temp 36.8 C 07/21/18 14:21 Pulse 73 07/21/18 14:21 Resp 18 07/21/18 14:21 BP 117/67 07/21/18 14:21 Pulse Ox 93 L 07/21/18 14:21 - Orders/Labs/Meds Orders: Active Orders 24 hr Category Date Time Status B-TYPE NATRIURETIC PEPTIDE,BNP [CHEM] Stat Lab 07/21/18 15:59 Ordered CBC WITH AUTO DIFF [HEME] Urgent Lab 07/21/18 14:35 Results CULTURE BLOOD [BC] Stat Lab 07/21/18 14:35 Received CULTURE BLOOD [BC] Stat Lab 07/21/18 14:43 Received MANUAL DIFFERENTIAL QA/NC [HEME] Urgent Lab 07/21/18 14:35 Results UA RFX RENE AND CULT IF INDIC [URIN] Urgent Lab 07/21/18 14:10 Ordered Sodium Chloride 0.9% [Normal Saline] 1,000 ml Med 07/21/18 15:00 Active IV ASDIRECTED Vancomycin 1.25 gm Med 07/21/18 16:08 Ordered Sodium Chloride 0.9% [Normal Saline] 250 ml IV ONETIME Blood Culture x2 Reflex Set [OM.PC] Stat Oth 07/21/18 14:10 Ordered Medication Orders Sodium Chloride (Normal Saline) 1,000 mls @ 20 mls/hr IV ASDIRECTED MATTHEW Last Admin: 07/21/18 14:50 Dose: 20 mls/hr Vancomycin HCl 1.25 gm/ Sodium (Chloride) 250 mls @ 167 mls/hr IV ONETIME ONE Stop: 07/21/18 17:37 Labs: Laboratory Tests 07/21/18 07/21/18 07/21/18 Range/Units 14:35 14:35 14:35 WBC (5.0-10.0) 10^3/uL RBC (4.6-6.2) 10^6/uL Hgb (14.0-18.0) g/dL Hct (40.0-54.0) % MCV (80-100) fL MCH (27.0-34.0) pg MCHC (33.0-35.0) g/dL Plt Count (150-450) 10^3/uL Neut % (Auto) (42.2-75.2) % Lymph % (Auto) (20.5-50.1) % [place] % (Auto) (2-8) % Eos % (Auto) (1.0-3.0) % Baso % (Auto) (0.0-1.0) % Add Manual Diff D-Dimer, Quantitative > 5000 H (0-400) ng/mL Sodium 139 (135-145) mmol/L Potassium 4.2 (3.6-5.0) mmol/L Chloride 106 (101-111) mmol/L Carbon Dioxide 23.0 (21.0-31.0) mmol/L Anion Gap 14.2 BUN 35 H (7-18) mg/dL Creatinine 1.1 (0.6-1.3) mg/dL Est Cr Clr Drug Dosing TNP Estimated GFR (MDRD) > 60 BUN/Creatinine Ratio 31.81 Glucose 109 H (74-105) mg/dL Lactic Acid 1.8 (0.5-2.2) mmol/L Calcium 7.9 L (8.4-10.2) mg/dl Total Bilirubin 1.1 H (0.2-1.0) mg/dL AST 29 (10-42) IU/L ALT 51 (10-60) IU/L Alkaline Phosphatase 101 (42-121) IU/L Total Protein 4.6 L (6.7-8.2) g/dl Albumin 2.0 L (3.2-5.5) g/dl Globulin 2.6 Albumin/Globulin Ratio 0.77 07/21/18 Range/Units 14:35 WBC 15.2 H (5.0-10.0) 10^3/uL RBC 4.26 L (4.6-6.2) 10^6/uL Hgb 13.6 L (14.0-18.0) g/dL Hct 41.4 (40.0-54.0) % MCV 97.2 (80-100) fL MCH 31.9 (27.0-34.0) pg MCHC 32.9 L (33.0-35.0) g/dL Plt Count 77 L (150-450) 10^3/uL Neut % (Auto) 93.2 H (42.2-75.2) % Lymph % (Auto) 1.6 L (20.5-50.1) % [place] % (Auto) 3.8 (2-8) % Eos % (Auto) 0.8 L (1.0-3.0) % Baso % (Auto) 0.6 (0.0-1.0) % Add Manual Diff Yes D-Dimer, Quantitative (0-400) ng/mL Sodium (135-145) mmol/L Potassium (3.6-5.0) mmol/L Chloride (101-111) mmol/L Carbon Dioxide (21.0-31.0) mmol/L Anion Gap BUN (7-18) mg/dL Creatinine (0.6-1.3) mg/dL Est Cr Clr Drug Dosing Estimated GFR (MDRD) BUN/Creatinine Ratio Glucose (74-105) mg/dL Lactic Acid (0.5-2.2) mmol/L Calcium (8.4-10.2) mg/dl Total Bilirubin (0.2-1.0) mg/dL AST (10-42) IU/L ALT (10-60) IU/L Alkaline Phosphatase (42-121) IU/L Total Protein (6.7-8.2) g/dl Albumin (3.2-5.5) g/dl Globulin Albumin/Globulin Ratio Meds: Medications Generic Name Dose Route Start Last Admin Trade Name Freq PRN Reason Stop Dose Admin Sodium Chloride 1,000 mls @ 20 mls/hr 07/21/18 15:00 07/21/18 14:50 Normal Saline IV 20 mls/hr ASDIRECTED MATTHEW Administration Vancomycin HCl 1.25 gm/ Sodium 250 mls @ 167 mls/hr 07/21/18 16:08 Chloride IV 07/21/18 17:37 ONETIME ONE Departure - Departure Time of Disposition: 16:11 Disposition: Admitted As Inpatient 65 Condition: Fair Clinical Impression: Cellulitis of upper extremity Qualifiers: Laterality: unspecified laterality Qualified Code(s): L03.119 - Cellulitis of unspecified part of limb - Discharge Information *PRESCRIPTION DRUG MONITORING PROGRAM REVIEWED*: Not Applicable *COPY OF PRESCRIPTION DRUG MONITORING REPORT IN PATIENT IRMA: Not Applicable Care Plan Goals: Discussed the examination, history and lab results with Dr. Cody. Dr. Cody accepted the patient for continued evaluation and management as an inpatient at [facility]. The patient was started on Vancomycin while in the ED prior to transport to the floor. - My Orders Last 24 Hours: My Active Orders 07/21/18 14:10 UA RFX RENE AND CULT IF INDIC [URIN] Urgent Blood Culture x2 Reflex Set [OM.PC] Stat 07/21/18 14:35 CBC WITH AUTO DIFF [HEME] Urgent CULTURE BLOOD [BC] Stat MANUAL DIFFERENTIAL QA/NC [HEME] Urgent 07/21/18 14:43 CULTURE BLOOD [BC] Stat 07/21/18 15:00 Sodium Chloride 0.9% [Normal Saline] 1,000 ml IV ASDIRECTED 07/21/18 15:59 B-TYPE NATRIURETIC PEPTIDE,BNP [CHEM] Stat 07/21/18 16:08 Vancomycin 1.25 gm Sodium Chloride 0.9% [Normal Saline] 250 ml IV ONETIME - Assessment/Plan Last 24 Hours: My Active Orders 07/21/18 14:10 UA RFX RENE AND CULT IF INDIC [URIN] Urgent Blood Culture x2 Reflex Set [OM.PC] Stat 07/21/18 14:35 CBC WITH AUTO DIFF [HEME] Urgent CULTURE BLOOD [BC] Stat MANUAL DIFFERENTIAL QA/NC [HEME] Urgent 07/21/18 14:43 CULTURE BLOOD [BC] Stat 07/21/18 15:00 Sodium Chloride 0.9% [Normal Saline] 1,000 ml IV ASDIRECTED 07/21/18 15:59 B-TYPE NATRIURETIC PEPTIDE,BNP [CHEM] Stat 07/21/18 16:08 Vancomycin 1.25 gm Sodium Chloride 0.9% [Normal Saline] 250 ml IV ONETIME
[2018-07-21] MEDS ORDERED: Sodium Chloride 0.9% 1,000 ML IV SCH (15:00)
[2018-07-21 15:11] LABS: ANION GAP 14.2; CHLORIDE,CL 106 mmol/L (101-111); SODIUM,NA 139 mmol/L (135-145)
[2018-07-21] MEDS ORDERED: Polyethylene Glycol 3350 Powder 17 GM Packet PO PRN (17:21)
[2018-07-21] MEDS ORDERED: Bisacodyl 5 MG Tab PO PRN (17:21)
[2018-07-21] MEDS ORDERED: Ondansetron 4 MG/2 ML SDV IVPUSH PRN (17:21)
--- NOTE | 2018-07-21 17:39 | PCM.HP ---
H&P History of Present Illness - General Date of Service: 07/21/18 Admit Problem/Dx: Admission Diagnosis/Problem Admission Diagnosis/Problem Cellulitis Source of Information: Patient History Limitations: Reports: No Limitations - History of Present Illness Initial Comments - Free Text/Narative: Patient is 73 y/o male [place] resident with PMH of advanced brain Ca, CKD, HTN, DM- II, fluid overload who was brought to the ER with spouse because of redness to upper extremities and increasing redness. Patient says the UE were normal yesterday and this morning there were note to be red. Patient follows with Dr. Candelaria and upon follow up today patient was sent to the ER for further management. He denies trauma, fever, chills, N/V. He reports increasing weight gain and swelling to extremities. In te ER labs revealed wbc of 15, lactate wnl. Vitals were normal. Patient is being admitted for further management. Onset of Symptoms: Reports: Today, Sudden Duration of Symptoms: Reports: Other (redness to both upper arms) Quality: Reports: Dull Improves with: Reports: None Worsens with: Reports: None Associated Symptoms: Reports: Loss of Appetite, Malaise, Weakness - Related Data Allergies/Adverse Reactions: Allergies Allergy/AdvReac Type Severity Reaction Status Date / Time No Known Allergies Allergy Verified 07/21/18 17:20 Home Medications: Home Meds Aspirin [Carlie Chewable Aspirin] 81 mg PO DAILY 06/07/13 [History] Benazepril [Lotensin] 10 mg PO BID 06/07/13 [History] Multivitamin [Multivitamins] 1 tab PO DAILY 06/07/13 [History] glipiZIDE [Glucotrol] 5 mg PO BID 06/07/13 [History] Metoprolol Tartrate 50 mg PO DAILY 05/12/16 [History] Simvastatin [Zocor] 40 mg PO BEDTIME 05/12/16 [History] Dexamethasone 2 mg PO BEDTIME 04/20/18 [History] Pantoprazole [ProTONIX] 40 mg PO DAILY 04/20/18 [History] levETIRAcetam [Keppra] 500 mg PO 1700 04/20/18 [History] Methylphenidate [Ritalin] 20 mg PO BID 04/26/18 [History] NIFEdipine [Procardia XL] 60 mg PO DAILY 04/26/18 [History] DULoxetine [Cymbalta] 30 mg PO BEDTIME 07/21/18 [History] Dexamethasone 4 mg PO QAM 07/21/18 [History] Past Medical History HEENT History: Reports: Hard of Hearing, Impaired Vision Cardiovascular History: Reports: High Cholesterol, Hypertension Gastrointestinal History: Reports: GERD Genitourinary History: Reports: Renal Disease, Other (See Below) Other Genitourinary History: removal of tumor from a kidney Musculoskeletal History: Reports: Back Pain, Chronic Neurological History: Reports: Other (See Below) Other Neuro History: brain tumor Psychiatric History: Reports: Other (See Below) Other Psychiatric History: memory loss Endocrine/Metabolic History: Reports: Diabetes, Type II Oncologic (Cancer) History: Reports: Brain, Other (See Below) Other Oncologic History: left kidney tumor, stage four glioblastoma Dermatologic History: Reports: Cellulitis - Infectious Disease History Infectious Disease History: Reports: None Other Infectious Disease History: port-a-cath - Past Surgical History HEENT Surgical History: Reports: Other (See Below) Other HEENT Surgeries/Procedures: brain biopsy Cardiovascular Surgical History: Reports: None GI Surgical History: Reports: Appendectomy Male Surgical History: Reports: None Endocrine Surgical History: Reports: None Neurological Surgical History: Reports: None Oncologic Surgical History: Reports: Other (See Below) Other Oncologic Surgeries/Procedures: bipsies Social & Family History - Family History Family Medical History: Noncontributory - Tobacco Use Smoking Status *Q: Never Smoker Second Hand Smoke Exposure: No - Caffeine Use Caffeine Use: Reports: Coffee - Recreational Drug Use Recreational Drug Use: No - Living Situation & Occupation Living situation: Reports: , with Spouse Occupation: Retired H&P Review of Systems - Review of Systems: Review Of Systems: See Below General: Reports: Malaise, Weakness HEENT: Reports: No Symptoms Pulmonary: Reports: No Symptoms Cardiovascular: Reports: No Symptoms Gastrointestinal: Reports: No Symptoms Genitourinary: Reports: No Symptoms Musculoskeletal: Reports: No Symptoms Skin: Reports: Other (redness to both UE, generalized anarsaca) Psychiatric: Reports: No Symptoms Neurological: Reports: No Symptoms Hematologic/Lymphatic: Reports: No Symptoms Immunologic: Reports: No Symptoms Exam - Exam Exam: See Below - Vital Signs Vital Signs: Last Vital Signs Temp 97.7 F 07/21/18 16:40 Pulse 71 07/21/18 16:40 Resp 18 07/21/18 16:40 BP 115/65 07/21/18 16:40 Pulse Ox 93 L 07/21/18 17:21 Weight: 168 lb - Exam Quality Assessment: DVT Prophylaxis, Skin Breakdown General: Alert, Oriented, 4 HEENT: PERRLA, Hearing Intact, Mucosa Moist & [place], Nares Patent, Normal Nasal Septum, Posterior Pharynx Clear, Conjunctiva Clear, EOMI, EACs Clear, TMs Clear Neck: Supple, Trachea Midline, 2 Lungs: Clear to Auscultation, Normal Respiratory Effort Cardiovascular: Regular Rate, Regular Rhythm GI/Abdominal Exam: Normal Bowel Sounds, Soft, Non-Tender, No Organomegaly, No Distention, No Abnormal Bruit, No Mass, Pelvis Stable (Male) Exam: No Hernia, Normal Inspection, Normal Prostate, Circumcised Rectal (Males) Exam: Deferred Back Exam: Normal Inspection, Full Range of Motion, NT Extremities: Redness, Other (generalized anasarca) Skin: Other (redness to UE) Neurological: Cranial Nerves Intact, Reflexes Equal Bilateral Neuro Extensive - Mental Status: Alert, Oriented x3, Normal Mood/Affect, Normal Cognition Neuro Extensive - Motor, Sensory, Reflexes: CN II-XII Intact, Normal Gait, Normal Reflexes Psychiatric: Alert, Normal Affect, Normal Mood - Patient Data Lab Results Last 24 hrs: Laboratory Results - last 24 hr 07/21/18 07/21/18 07/21/18 Range/Units 14:35 14:35 14:35 WBC (5.0-10.0) 10^3/uL RBC (4.6-6.2) 10^6/uL Hgb (14.0-18.0) g/dL Hct (40.0-54.0) % MCV (80-100) fL MCH (27.0-34.0) pg MCHC (33.0-35.0) g/dL Plt Count (150-450) 10^3/uL Neut % (Auto) (42.2-75.2) % Lymph % (Auto) (20.5-50.1) % [place] % (Auto) (2-8) % Eos % (Auto) (1.0-3.0) % Baso % (Auto) (0.0-1.0) % Add Manual Diff D-Dimer, Quantitative > 5000 H (0-400) ng/mL Sodium 139 (135-145) mmol/L Potassium 4.2 (3.6-5.0) mmol/L Chloride 106 (101-111) mmol/L Carbon Dioxide 23.0 (21.0-31.0) mmol/L Anion Gap 14.2 BUN 35 H (7-18) mg/dL Creatinine 1.1 (0.6-1.3) mg/dL Est Cr Clr Drug Dosing TNP Estimated GFR (MDRD) > 60 BUN/Creatinine Ratio 31.81 Glucose 109 H (74-105) mg/dL Lactic Acid 1.8 (0.5-2.2) mmol/L Calcium 7.9 L (8.4-10.2) mg/dl Total Bilirubin 1.1 H (0.2-1.0) mg/dL AST 29 (10-42) IU/L ALT 51 (10-60) IU/L Alkaline Phosphatase 101 (42-121) IU/L B-Natriuretic Peptide (0-100) pg/ml Total Protein 4.6 L (6.7-8.2) g/dl Albumin 2.0 L (3.2-5.5) g/dl Globulin 2.6 Albumin/Globulin Ratio 0.77 07/21/18 07/21/18 Range/Units 14:35 14:35 WBC 15.2 H (5.0-10.0) 10^3/uL RBC 4.26 L (4.6-6.2) 10^6/uL Hgb 13.6 L (14.0-18.0) g/dL Hct 41.4 (40.0-54.0) % MCV 97.2 (80-100) fL MCH 31.9 (27.0-34.0) pg MCHC 32.9 L (33.0-35.0) g/dL Plt Count 77 L (150-450) 10^3/uL Neut % (Auto) 93.2 H (42.2-75.2) % Lymph % (Auto) 1.6 L (20.5-50.1) % [place] % (Auto) 3.8 (2-8) % Eos % (Auto) 0.8 L (1.0-3.0) % Baso % (Auto) 0.6 (0.0-1.0) % Add Manual Diff Yes D-Dimer, Quantitative (0-400) ng/mL Sodium (135-145) mmol/L Potassium (3.6-5.0) mmol/L Chloride (101-111) mmol/L Carbon Dioxide (21.0-31.0) mmol/L Anion Gap BUN (7-18) mg/dL Creatinine (0.6-1.3) mg/dL Est Cr Clr Drug Dosing Estimated GFR (MDRD) BUN/Creatinine Ratio Glucose (74-105) mg/dL Lactic Acid (0.5-2.2) mmol/L Calcium (8.4-10.2) mg/dl Total Bilirubin (0.2-1.0) mg/dL AST (10-42) IU/L ALT (10-60) IU/L Alkaline Phosphatase (42-121) IU/L B-Natriuretic Peptide 64 (0-100) pg/ml Total Protein (6.7-8.2) g/dl Albumin (3.2-5.5) g/dl Globulin Albumin/Globulin Ratio Result Diagrams: 07/21/18 14:35 07/21/18 14:35 - Problem List (1) Anasarca SNOMED Code(s): 592699505, 595304145 ICD Code: R60.1 - GENERALIZED EDEMA Status: Acute Current Visit: Yes (2) Brain cancer SNOMED Code(s): 000398768 ICD Code: C71.9 - MALIGNANT NEOPLASM OF BRAIN, UNSPECIFIED Status: Acute Current Visit: No Qualifiers: Malignant neoplasm of brain location: unspecified location Qualified Code(s ): C71.9 - Malignant neoplasm of brain, unspecified (3) Cellulitis of upper extremity Status: Acute Current Visit: No Qualifiers: Laterality: unspecified laterality Qualified Code(s): L03.119 - Cellulitis of unspecified part of limb (4) Edema of right lower extremity SNOMED Code(s): 950371792 ICD Code: R60.0 - LOCALIZED EDEMA Status: Acute Current Visit: No (5) Weakness SNOMED Code(s): 15504936 ICD Code: R53.1 - WEAKNESS Status: Acute Current Visit: No (6) Chronic kidney disease, unspecified SNOMED Code(s): 641255640 ICD Code: N18.9 - CHRONIC KIDNEY DISEASE, UNSPECIFIED Status: Chronic Priority: Medium Current Visit: No Qualifiers: Chronic kidney disease stage: unspecified stage Qualified Code(s): N18.9 - Chronic kidney disease, unspecified (7) Essential (primary) hypertension SNOMED Code(s): 88099459 ICD Code: I10 - ESSENTIAL (PRIMARY) HYPERTENSION Status: Chronic Current Visit: No (8) Type 2 diabetes mellitus without complications SNOMED Code(s): 635445671 ICD Code: E11.9 - TYPE 2 DIABETES MELLITUS WITHOUT COMPLICATIONS Status: Chronic Priority: Medium Current Visit: No Qualifiers: Diabetes mellitus alf insulin use: without alf use Qualified Code(s): E11.9 - Type 2 diabetes mellitus without complications Problem List Initiated/Reviewed/Updated: Yes Orders Last 24hrs: Active Orders 24 hr Category Date Time Status Patient Status [ADT] Routine ADT 07/21/18 17:21 Ordered Bedrest Bedside Commode [RC] ASDIRECTED Care 07/21/18 17:21 Ordered Blood Glucose Check, Bedside [RC] TIDMEALS Care 07/21/18 17:21 Ordered Oxygen Therapy [RC] PRN Care 07/21/18 17:21 Ordered VTE/DVT Education [RC] PER UNIT ROUTINE Care 07/21/18 17:21 Ordered Vital Signs [RC] Q4H Care 07/21/18 17:21 Ordered OT Evaluation and Treatment [CONS] Routine Cons 07/21/18 17:21 Ordered PT Evaluation and Treatment [CONS] Routine Cons 07/21/18 17:21 Ordered Regular Diet [DIET] Diet 07/21/18 Dinner Ordered BASIC METABOLIC PANEL,BMP [CHEM] DAILY Lab 07/22/18 05:00 Ordered CBC W/O DIFF,HEMOGRAM [HEME] DAILY Lab 07/22/18 05:00 Ordered CBC W/O DIFF,HEMOGRAM [HEME] DAILY Lab 07/23/18 05:00 Ordered CBC W/O DIFF,HEMOGRAM [HEME] DAILY Lab 07/24/18 05:00 Ordered CBC W/O DIFF,HEMOGRAM [HEME] DAILY Lab 07/25/18 05:00 Ordered CBC WITH AUTO DIFF [HEME] Urgent Lab 07/21/18 14:35 Results CULTURE BLOOD [BC] Stat Lab 07/21/18 14:35 Received CULTURE BLOOD [BC] Stat Lab 07/21/18 14:43 Received MAGNESIUM [CHEM] DAILY Lab 07/21/18 05:00 Ordered MANUAL DIFFERENTIAL QA/NC [HEME] Urgent Lab 07/21/18 14:35 Results PHOSPHORUS [CHEM] AM Lab 07/22/18 05:11 Ordered UA RFX RENE AND CULT IF INDIC [URIN] Urgent Lab 07/21/18 14:10 Ordered Acetaminophen [Tylenol] Med 07/21/18 17:21 Ordered 650 mg PO Q6H PRN Aspirin Med 07/22/18 09:00 Ordered 81 mg PO DAILY Benazepril Med 07/21/18 21:00 Ordered 10 mg PO BID Bisacodyl [Dulcolax] Med 07/21/18 17:21 Ordered 5 mg PO DAILY PRN Bumetanide [Bumex] Med 07/22/18 06:00 Ordered 1 mg IVPUSH BID DULoxetine [Cymbalta] Med 07/21/18 21:00 Ordered 30 mg PO BEDTIME Dexamethasone Med 07/21/18 21:00 Ordered 2 mg PO BEDTIME Dexamethasone Med 07/22/18 09:00 Ordered 4 mg PO QAM Heparin Sodium Med 07/21/18 17:30 Ordered 5,000 units SUBCUT Q12H Methylphenidate [Ritalin] Med 07/21/18 21:00 Ordered 20 mg PO BID Metoprolol Tartrate [Lopressor] Med 07/22/18 09:00 Ordered 50 mg PO DAILY Multivitamin [Multivitamins] Med 07/22/18 09:00 Ordered 1 tab PO DAILY NIFEdipine [Procardia XL] Med 07/22/18 09:00 Ordered 60 mg PO DAILY Ondansetron [Zofran] Med 07/21/18 17:21 Ordered 4 mg IVPUSH Q8H PRN Pantoprazole [ProTONIX] Med 07/22/18 09:00 Ordered 40 mg PO DAILY Pharmacy to Dose - Vancomycin Med 07/21/18 17:30 Ordered 1 dose .XX ASDIRECTED Polyethylene Glycol 3350 [MiraLAX] Med 07/21/18 17:21 Ordered 17 gm PO DAILY PRN Simvastatin [Zocor] Med 07/21/18 21:00 Ordered 40 mg PO BEDTIME Sodium Chloride 0.9% [Normal Saline] 1,000 ml Med 07/21/18 15:00 Active IV ASDIRECTED Vancomycin 1.25 gm Med 07/21/18 16:08 Active Sodium Chloride 0.9% [Normal Saline] 250 ml IV ONETIME glipiZIDE [Glucotrol] Med 07/21/18 21:00 Ordered 5 mg PO BID levETIRAcetam [Keppra] Med 07/22/18 17:00 Ordered 500 mg PO 1700 Blood Culture x2 Reflex Set [OM.PC] Stat Oth 07/21/18 14:10 Ordered Resuscitation Status Routine Resus Stat 07/21/18 17:21 Ordered Medication Orders Acetaminophen (Tylenol) 650 mg PO Q6H PRN PRN Reason: Pain (Mild 1-3)/fever Aspirin (Aspirin) 81 mg PO DAILY [facility] Bisacodyl (Dulcolax) 5 mg PO DAILY PRN PRN Reason: Constipation Bumetanide (Bumex) 1 mg IVPUSH BID [facility] Dexamethasone (Dexamethasone) 2 mg PO BEDTIME [facility] Dexamethasone (Dexamethasone) 4 mg PO QAM [facility] Duloxetine HCl (Cymbalta) 30 mg PO BEDTIME [facility] Glipizide (Glucotrol) 5 mg PO BID [facility] Heparin Sodium (Porcine) (Heparin Sodium) 5,000 units SUBCUT Q12H [facility] Sodium Chloride (Normal Saline) 1,000 mls @ 20 mls/hr IV ASDIRECTED [facility] Last Admin: 07/21/18 14:50 Dose: 20 mls/hr Vancomycin HCl 1.25 gm/ Sodium (Chloride) 250 mls @ 167 mls/hr IV ONETIME ONE Stop: 07/21/18 17:37 Last Admin: 07/21/18 16:28 Dose: 167 mls/hr Levetiracetam (Keppra) 500 mg PO 1700 [facility] Metoprolol Tartrate (Lopressor) 50 mg PO DAILY [facility] Nifedipine (Procardia Xl) 60 mg PO DAILY [facility] Non-Formulary Medication (Benazepril) 10 mg PO BID [facility] Non-Formulary Medication (Methylphenidate [Ritalin]) 20 mg PO BID [facility] Non-Formulary Medication (Multivitamin [Multivitamins]) 1 tab PO DAILY [facility] Ondansetron HCl (Zofran) 4 mg IVPUSH Q8H PRN PRN Reason: Nausea/Vomiting Pantoprazole Sodium (Protonix) 40 mg PO DAILY [facility] Polyethylene Glycol (Miralax) 17 gm PO DAILY PRN PRN Reason: Constipation Simvastatin (Zocor) 40 mg PO BEDTIME [facility] Vancomycin HCl (Pharmacy To Dose - Vancomycin) 1 dose .XX ASDIRECTED [facility] Assessment/Plan Comment:: Cellulitis to b/l upper extremities IV Vanco Blood cx Possible sepsis due to above Lactate normal Continue abx Follow cx Generalized Anasarca due hypoalbuminemia Encourage adequate calorie intake IV Bumex bid Daily weight Fluid restrictions Follow K daily and correct as needed Elevated D-dimer This could be due to malignancy He is not hypoxic He has generalized swelling will monitor closely Advanced brain Ca Follows with Dr. Candelaria. Continue Dexamethasone DM-II Controlled Continue home medication HTN BP within acceptable limit Continue home medication CKD Stable creatinine and GFR monitor renal function closely Bed bound status Ensure frequent turn in bed Regular diet DNR/DNI
[2018-07-21] MEDS: Heparin Sodium 5,000 Units/ML Vial SUBCUT SCH (18:26)
[2018-07-21] MEDS: Acetaminophen 325 MG Tab PO PRN (19:29)
[2018-07-21] MEDS: Benazepril 10 MG Tab PO SCH (20:28)
[2018-07-21] MEDS: Simvastatin 40 MG Tab PO SCH (20:35)
[2018-07-21] MEDS: glipiZIDE 5 MG Tab PO SCH (20:35)
[2018-07-21] MEDS: DULoxetine 30 MG Cap PO SCH (20:35)
[2018-07-21] MEDS: Dexamethasone 2 MG Tab PO SCH (20:37)
[2018-07-22] MEDS: Heparin Sodium 5,000 Units/ML Vial SUBCUT SCH ×2 (05:58→17:33)
[2018-07-22] MEDS: Bumetanide 1 MG/4 ML MDV IVPUSH SCH ×3 (06:32→21:50)
[2018-07-22 07:12] LABS: ANION GAP 12.9
[2018-07-22] MEDS: METHYLPHENIDATE 10 MG PO SCH ×3 (09:00→22:11)
[2018-07-22] MEDS: glipiZIDE 5 MG Tab PO SCH ×2 (09:39→21:51)
[2018-07-22] MEDS: NIFEdipine 30 MG Tab.ER PO SCH (09:39)
[2018-07-22] MEDS: Benazepril 10 MG Tab PO SCH ×2 (09:40→21:51)
[2018-07-22] MEDS: Dexamethasone 4 MG Tab PO SCH (09:41)
[2018-07-22] MEDS: Metoprolol Tartrate 50 MG Tab PO SCH (09:41)
[2018-07-22] MEDS: Multivitamins,Therapeutic Tab PO SCH (09:41)
[2018-07-22] MEDS: Pantoprazole 40 MG Tab.CR PO SCH (09:41)
[2018-07-22] MEDS: Aspirin 81 MG Tab.Chew PO SCH (09:41)
[2018-07-22] MEDS: Acetaminophen 325 MG Tab PO PRN ×2 (09:42→17:27)
--- NOTE | 2018-07-22 11:03 | PCM.PN ---
- General Info Date of Service: 07/22/18 Admission Dx/Problem (Free Text): Admission Diagnosis/Problem Admission Diagnosis/Problem Cellulitis Subjective Update: Patient is 73 y/o male NH resident with PMH of advanced brain Ca, CKD, HTN, DM- II, fluid overload who was brought to the ER with spouse because of redness to upper extremities and increasing redness. He was admitted for b/l UE cellulitis and fluid overload. He was seen this morning at bedside. No acute overnight event. Redness to b/l UE improved. No fever, chills. Functional Status: Reports: Pain Controlled - Review of Systems General: Reports: No Symptoms HEENT: Reports: No Symptoms Pulmonary: Reports: No Symptoms Cardiovascular: Reports: No Symptoms Gastrointestinal: Reports: No Symptoms Genitourinary: Reports: No Symptoms Musculoskeletal: Reports: No Symptoms Skin: Reports: No Symptoms Neurological: Reports: No Symptoms Psychiatric: Reports: No Symptoms - Patient Data Vitals - Most Recent: Last Vital Signs Temp 97.2 F 07/22/18 08:01 Pulse 68 07/22/18 09:41 Resp 20 07/22/18 08:01 BP 124/72 07/22/18 09:41 Pulse Ox 96 07/22/18 08:01 Weight - Most Recent: 168 lb I&O - Last 24 Hours: Intake & Output 07/21/18 07/22/18 07/22/18 22:59 06:59 14:59 Intake Total 348 100 200 Output Total 100 Balance 348 0 200 Lab Results Last 24 Hours: Laboratory Results - last 24 hr 07/21/18 07/21/18 07/21/18 Range/Units 14:35 14:35 14:35 WBC (5.0-10.0) 10^3/uL RBC (4.6-6.2) 10^6/uL Hgb (14.0-18.0) g/dL Hct (40.0-54.0) % MCV (80-100) fL MCH (27.0-34.0) pg MCHC (33.0-35.0) g/dL Plt Count (150-450) 10^3/uL Neut % (Auto) (42.2-75.2) % Lymph % (Auto) (20.5-50.1) % [place] % (Auto) (2-8) % Eos % (Auto) (1.0-3.0) % Baso % (Auto) (0.0-1.0) % Add Manual Diff Neutrophils % (Manual) (42-75) % Band Neutrophils % % Lymphocytes % (Manual) (20-50) % Monocytes % (Manual) (2-8) % Eosinophils % (Manual) (1-3) % Metamyelocytes % Vacuolated Monocytes Toxic Granulation Platelet Estimate [place] Cells D-Dimer, Quantitative > 5000 H (0-400) ng/mL Sodium 139 (135-145) mmol/L Potassium 4.2 (3.6-5.0) mmol/L Chloride 106 (101-111) mmol/L Carbon Dioxide 23.0 (21.0-31.0) mmol/L Anion Gap 14.2 BUN 35 H (7-18) mg/dL Creatinine 1.1 (0.6-1.3) mg/dL Est Cr Clr Drug Dosing TNP Estimated GFR (MDRD) > 60 BUN/Creatinine Ratio 31.81 Glucose 109 H (74-105) mg/dL POC Glucose (83-110) mg/dl Lactic Acid 1.8 (0.5-2.2) mmol/L Calcium 7.9 L (8.4-10.2) mg/dl Phosphorus (2.5-4.6) mg/dL Magnesium (1.8-2.5) mg/dL Total Bilirubin 1.1 H (0.2-1.0) mg/dL AST 29 (10-42) IU/L ALT 51 (10-60) IU/L Alkaline Phosphatase 101 (42-121) IU/L B-Natriuretic Peptide (0-100) pg/ml Total Protein 4.6 L (6.7-8.2) g/dl Albumin 2.0 L (3.2-5.5) g/dl Globulin 2.6 Albumin/Globulin Ratio 0.77 07/21/18 07/21/18 07/21/18 Range/Units 14:35 14:35 14:35 WBC 15.2 H (5.0-10.0) 10^3/uL RBC 4.26 L (4.6-6.2) 10^6/uL Hgb 13.6 L (14.0-18.0) g/dL Hct 41.4 (40.0-54.0) % MCV 97.2 (80-100) fL MCH 31.9 (27.0-34.0) pg MCHC 32.9 L (33.0-35.0) g/dL Plt Count 77 L (150-450) 10^3/uL Neut % (Auto) 93.2 H (42.2-75.2) % Lymph % (Auto) 1.6 L (20.5-50.1) % [place] % (Auto) 3.8 (2-8) % Eos % (Auto) 0.8 L (1.0-3.0) % Baso % (Auto) 0.6 (0.0-1.0) % Add Manual Diff Yes Neutrophils % (Manual) 75 (42-75) % Band Neutrophils % 17 % Lymphocytes % (Manual) 2 L (20-50) % Monocytes % (Manual) 3 (2-8) % Eosinophils % (Manual) 2 (1-3) % Metamyelocytes % 1 Vacuolated Monocytes 1+ slight Toxic Granulation 2+ moderate Platelet Estimate Decreased [place] Cells Few D-Dimer, Quantitative (0-400) ng/mL Sodium (135-145) mmol/L Potassium (3.6-5.0) mmol/L Chloride (101-111) mmol/L Carbon Dioxide (21.0-31.0) mmol/L Anion Gap BUN (7-18) mg/dL Creatinine (0.6-1.3) mg/dL Est Cr Clr Drug Dosing Estimated GFR (MDRD) BUN/Creatinine Ratio Glucose (74-105) mg/dL POC Glucose (83-110) mg/dl Lactic Acid (0.5-2.2) mmol/L Calcium (8.4-10.2) mg/dl Phosphorus (2.5-4.6) mg/dL Magnesium 1.8 (1.8-2.5) mg/dL Total Bilirubin (0.2-1.0) mg/dL AST (10-42) IU/L ALT (10-60) IU/L Alkaline Phosphatase (42-121) IU/L B-Natriuretic Peptide 64 (0-100) pg/ml Total Protein (6.7-8.2) g/dl Albumin (3.2-5.5) g/dl Globulin Albumin/Globulin Ratio 07/21/18 07/22/18 07/22/18 Range/Units 17:34 06:30 06:30 WBC 13.0 H (5.0-10.0) 10^3/uL RBC 3.97 L (4.6-6.2) 10^6/uL Hgb 12.4 L (14.0-18.0) g/dL Hct 38.0 L (40.0-54.0) % MCV 95.7 (80-100) fL MCH 31.2 (27.0-34.0) pg MCHC 32.6 L (33.0-35.0) g/dL Plt Count 64 L (150-450) 10^3/uL Neut % (Auto) (42.2-75.2) % Lymph % (Auto) (20.5-50.1) % [place] % (Auto) (2-8) % Eos % (Auto) (1.0-3.0) % Baso % (Auto) (0.0-1.0) % Add Manual Diff Neutrophils % (Manual) (42-75) % Band Neutrophils % % Lymphocytes % (Manual) (20-50) % Monocytes % (Manual) (2-8) % Eosinophils % (Manual) (1-3) % Metamyelocytes % Vacuolated Monocytes Toxic Granulation Platelet Estimate [place] Cells D-Dimer, Quantitative (0-400) ng/mL Sodium 139 (135-145) mmol/L Potassium 3.9 (3.6-5.0) mmol/L Chloride 107 (101-111) mmol/L Carbon Dioxide 23.0 (21.0-31.0) mmol/L Anion Gap 12.9 BUN 38 H (7-18) mg/dL Creatinine 1.2 (0.6-1.3) mg/dL Est Cr Clr Drug Dosing 58.21 Estimated GFR (MDRD) 59 BUN/Creatinine Ratio Glucose 270 H (74-105) mg/dL POC Glucose 100 (83-110) mg/dl Lactic Acid (0.5-2.2) mmol/L Calcium 7.7 L (8.4-10.2) mg/dl Phosphorus (2.5-4.6) mg/dL Magnesium (1.8-2.5) mg/dL Total Bilirubin (0.2-1.0) mg/dL AST (10-42) IU/L ALT (10-60) IU/L Alkaline Phosphatase (42-121) IU/L B-Natriuretic Peptide (0-100) pg/ml Total Protein (6.7-8.2) g/dl Albumin (3.2-5.5) g/dl Globulin Albumin/Globulin Ratio 07/22/18 07/22/18 Range/Units 06:30 07:13 WBC (5.0-10.0) 10^3/uL RBC (4.6-6.2) 10^6/uL Hgb (14.0-18.0) g/dL Hct (40.0-54.0) % MCV (80-100) fL MCH (27.0-34.0) pg MCHC (33.0-35.0) g/dL Plt Count (150-450) 10^3/uL Neut % (Auto) (42.2-75.2) % Lymph % (Auto) (20.5-50.1) % [place] % (Auto) (2-8) % Eos % (Auto) (1.0-3.0) % Baso % (Auto) (0.0-1.0) % Add Manual Diff Neutrophils % (Manual) (42-75) % Band Neutrophils % % Lymphocytes % (Manual) (20-50) % Monocytes % (Manual) (2-8) % Eosinophils % (Manual) (1-3) % Metamyelocytes % Vacuolated Monocytes Toxic Granulation Platelet Estimate [place] Cells D-Dimer, Quantitative (0-400) ng/mL Sodium (135-145) mmol/L Potassium (3.6-5.0) mmol/L Chloride (101-111) mmol/L Carbon Dioxide (21.0-31.0) mmol/L Anion Gap BUN (7-18) mg/dL Creatinine (0.6-1.3) mg/dL Est Cr Clr Drug Dosing Estimated GFR (MDRD) BUN/Creatinine Ratio Glucose (74-105) mg/dL POC Glucose 257 H (83-110) mg/dl Lactic Acid (0.5-2.2) mmol/L Calcium (8.4-10.2) mg/dl Phosphorus 3.7 (2.5-4.6) mg/dL Magnesium (1.8-2.5) mg/dL Total Bilirubin (0.2-1.0) mg/dL AST (10-42) IU/L ALT (10-60) IU/L Alkaline Phosphatase (42-121) IU/L B-Natriuretic Peptide (0-100) pg/ml Total Protein (6.7-8.2) g/dl Albumin (3.2-5.5) g/dl Globulin Albumin/Globulin Ratio Med Orders - Current: Current Medications Acetaminophen (Tylenol) 650 mg PO Q6H PRN PRN Reason: Pain (Mild 1-3)/fever Last Admin: 07/22/18 09:42 Dose: 650 mg Aspirin (Aspirin) 81 mg PO DAILY [facility] Last Admin: 07/22/18 09:41 Dose: 81 mg Benazepril HCl (Lotensin) 10 mg PO BID [facility] Last Admin: 07/22/18 09:40 Dose: 10 mg Bisacodyl (Dulcolax) 5 mg PO DAILY PRN PRN Reason: Constipation Bumetanide (Bumex) 1 mg IVPUSH BID [facility] Last Admin: 07/22/18 09:42 Dose: 1 mg Dexamethasone (Dexamethasone) 2 mg PO BEDTIME [facility] Last Admin: 07/21/18 20:37 Dose: 2 mg Dexamethasone (Dexamethasone) 4 mg PO QAM [facility] Last Admin: 07/22/18 09:41 Dose: 4 mg Duloxetine HCl (Cymbalta) 30 mg PO BEDTIME [facility] Last Admin: 07/21/18 20:35 Dose: 30 mg Glipizide (Glucotrol) 5 mg PO BID [facility] Last Admin: 07/22/18 09:39 Dose: 5 mg Heparin Sodium (Porcine) (Heparin Sodium) 5,000 units SUBCUT Q12H [facility] Last Admin: 07/22/18 05:58 Dose: 5,000 units Vancomycin HCl 1 gm/ Sodium (Chloride) 250 mls @ 166.667 mls/hr IV Q12H [facility] Last Admin: 07/22/18 06:40 Dose: 166.667 mls/hr Levetiracetam (Keppra) 500 mg PO 1700 [facility] Metoprolol Tartrate (Lopressor) 50 mg PO DAILY [facility] Last Admin: 07/22/18 09:41 Dose: 50 mg Multivitamins (Thera) 1 each PO DAILY [facility] Last Admin: 07/22/18 09:41 Dose: 1 each Nifedipine (Procardia Xl) 60 mg PO DAILY [facility] Last Admin: 07/22/18 09:39 Dose: 60 mg Methylphenidate [ (Ritalin] 20mg) 20 mg PO BID [facility] Ondansetron HCl (Zofran) 4 mg IVPUSH Q8H PRN PRN Reason: Nausea/Vomiting Pantoprazole Sodium (Protonix) 40 mg PO DAILY [facility] Last Admin: 07/22/18 09:41 Dose: 40 mg Polyethylene Glycol (Miralax) 17 gm PO DAILY PRN PRN Reason: Constipation Potassium Chloride (Klor-Con 10) 20 meq PO BIDMEALS [facility] Simvastatin (Zocor) 40 mg PO BEDTIME [facility] Last Admin: 07/21/18 20:35 Dose: 40 mg Vancomycin HCl (Pharmacy To Dose - Vancomycin) 1 dose .XX ASDIRECTED [facility] Discontinued Medications Sodium Chloride (Normal Saline) 1,000 mls @ 20 mls/hr IV ASDIRECTED [facility] Last Admin: 07/21/18 14:50 Dose: 20 mls/hr Vancomycin HCl 1.25 gm/ Sodium (Chloride) 250 mls @ 167 mls/hr IV ONETIME ONE Stop: 07/21/18 17:37 Last Admin: 07/21/18 16:28 Dose: 167 mls/hr Vancomycin HCl 1 gm/ Sodium (Chloride) 250 mls @ 166.667 mls/hr IV Q12H [facility] - Exam Quality Assessment: DVT Prophylaxis General: Alert, Oriented, Other (generalized anasarca) HEENT: Pupils Equal, Pupils Reactive, EOMI, Mucous Membr. Moist/[place] Neck: Supple Lungs: Clear to Auscultation, Normal Respiratory Effort Cardiovascular: Regular Rate, Regular Rhythm GI/Abdominal Exam: Normal Bowel Sounds, Soft, Non-Tender, No Organomegaly, No Distention, No Abnormal Bruit, No Mass, Pelvis Stable (Male) Exam: No Hernia, Normal Inspection, Normal Prostate, Circumcised Back Exam: Normal Inspection, Full Range of Motion Extremities: Normal Range of Motion, Non-Tender, Normal Capillary Refill, Pedal Edema, Redness, Other Skin: Warm, Dry, Intact Wound/Incisions: Healing Well Neurological: No New Focal Deficit Psy/Mental Status: Alert, Normal Affect, Normal Mood - Problem List & Annotations (1) Anasarca SNOMED Code(s): 300100887, 784798715 Code(s): R60.1 - GENERALIZED EDEMA Status: Acute Current Visit: Yes (2) Brain cancer SNOMED Code(s): 837182409 Code(s): C71.9 - MALIGNANT NEOPLASM OF BRAIN, UNSPECIFIED Status: Acute Current Visit: No Qualifiers: Malignant neoplasm of brain location: unspecified location Qualified Code(s ): C71.9 - Malignant neoplasm of brain, unspecified (3) Cellulitis of upper extremity Status: Acute Current Visit: No Qualifiers: Laterality: unspecified laterality Qualified Code(s): L03.119 - Cellulitis of unspecified part of limb (4) Edema of right lower extremity SNOMED Code(s): 866190293 Code(s): R60.0 - LOCALIZED EDEMA Status: Acute Current Visit: No (5) Weakness SNOMED Code(s): 73090686 Code(s): R53.1 - WEAKNESS Status: Acute Current Visit: No (6) Chronic kidney disease, unspecified SNOMED Code(s): 551010439 Code(s): N18.9 - CHRONIC KIDNEY DISEASE, UNSPECIFIED Status: Chronic Priority: Medium Current Visit: No Qualifiers: Chronic kidney disease stage: unspecified stage Qualified Code(s): N18.9 - Chronic kidney disease, unspecified (7) Essential (primary) hypertension SNOMED Code(s): 39950286 Code(s): I10 - ESSENTIAL (PRIMARY) HYPERTENSION Status: Chronic Current Visit: No (8) Type 2 diabetes mellitus without complications SNOMED Code(s): 123589456 Code(s): E11.9 - TYPE 2 DIABETES MELLITUS WITHOUT COMPLICATIONS Status: Chronic Priority: Medium Current Visit: No Qualifiers: Diabetes mellitus halfway insulin use: without chemistry department chair use Qualified Code(s): E11.9 - Type 2 diabetes mellitus without complications - Problem List Review Problem List Initiated/Reviewed/Updated: Yes - My Orders Last 24 Hours: My Active Orders 07/21/18 17:21 Patient Status [ADT] Routine Bedrest Bedside Commode [RC] ASDIRECTED Blood Glucose Check, Bedside [RC] TIDMEALS Oxygen Therapy [RC] PRN VTE/DVT Education [RC] PER UNIT ROUTINE Vital Signs [RC] Q4H OT Evaluation and Treatment [CONS] Routine PT Evaluation and Treatment [CONS] Routine Acetaminophen [Tylenol] 650 mg PO Q6H PRN Bisacodyl [Dulcolax] 5 mg PO DAILY PRN Ondansetron [Zofran] 4 mg IVPUSH Q8H PRN Polyethylene Glycol 3350 [MiraLAX] 17 gm PO DAILY PRN Resuscitation Status Routine 07/21/18 17:30 Heparin Sodium 5,000 units SUBCUT Q12H Pharmacy to Dose - Vancomycin 1 dose .XX ASDIRECTED 07/21/18 17:55 Communication Order [RC] 07/21/18 17:56 Communication Order [RC] DAILY 07/21/18 21:00 Benazepril [Lotensin] 10 mg PO BID DULoxetine [Cymbalta] 30 mg PO BEDTIME Dexamethasone 2 mg PO BEDTIME Methylphenidate [Ritalin] 20 mg PO BID Simvastatin [Zocor] 40 mg PO BEDTIME glipiZIDE [Glucotrol] 5 mg PO BID 07/21/18 Dinner Regular Diet [DIET] 07/22/18 06:00 Bumetanide [Bumex] 1 mg IVPUSH BID 07/22/18 07:00 Vancomycin 1 gm Sodium Chloride 0.9% [Normal Saline] 250 ml IV Q12H 07/22/18 09:00 Aspirin 81 mg PO DAILY Dexamethasone 4 mg PO QAM Metoprolol Tartrate [Lopressor] 50 mg PO DAILY Multivitamins,Therapeutic [Thera] 1 each PO DAILY NIFEdipine [Procardia XL] 60 mg PO DAILY Pantoprazole [ProTONIX] 40 mg PO DAILY 07/22/18 17:00 levETIRAcetam [Keppra] 500 mg PO 1700 07/22/18 18:00 Potassium Chloride [Klor-Con 10] 20 meq PO BIDMEALS 07/23/18 05:00 CBC W/O DIFF,HEMOGRAM [HEME] DAILY 07/24/18 05:00 CBC W/O DIFF,HEMOGRAM [HEME] DAILY 07/25/18 05:00 CBC W/O DIFF,HEMOGRAM [HEME] DAILY - Plan Plan:: Cellulitis to b/l upper extremities Continue IV Vanco Follow blood cx Possible sepsis due to above Lactate normal Continue abx Follow cx Generalized Anasarca due hypoalbuminemia Encourage adequate calorie intake IV Bumex bid Daily weight Fluid restrictions Follow K daily and correct as needed Elevated D-dimer This could be due to malignancy He is not hypoxic He has generalized swelling will monitor closely Advanced brain Ca Follows with Dr. Candelaria. Continue Dexamethasone DM-II Controlled Continue home medication HTN BP within acceptable limit Continue home medication CKD Stable creatinine and GFR monitor renal function closely Bed bound status Ensure frequent turn in bed Regular diet DNR/DNI
[2018-07-22] MEDS: Potassium Chloride 10 MEQ Tab.ER PO SCH (17:26)
[2018-07-22] MEDS: levETIRAcetam 500 MG Tab PO SCH (17:27)
[2018-07-22] MEDS: Insulin Lispro 100 Units/ML 3 ML Vial SUBCUT SCH (17:33)
[2018-07-22] MEDS: DULoxetine 30 MG Cap PO SCH (21:51)
[2018-07-22] MEDS: Simvastatin 40 MG Tab PO SCH (21:51)
[2018-07-22] MEDS: Dexamethasone 2 MG Tab PO SCH (22:11)
[2018-07-23] MEDS: Heparin Sodium 5,000 Units/ML Vial SUBCUT SCH ×2 (05:23→17:21)
[2018-07-23] MEDS: Bumetanide 1 MG/4 ML MDV IVPUSH SCH ×2 (09:47→15:38)
[2018-07-23] MEDS: Potassium Chloride 10 MEQ Tab.ER PO SCH ×2 (09:47→17:21)
[2018-07-23] MEDS: Dexamethasone 4 MG Tab PO SCH (09:47)
[2018-07-23] MEDS: NIFEdipine 30 MG Tab.ER PO SCH (09:47)
[2018-07-23] MEDS: Pantoprazole 40 MG Tab.CR PO SCH (09:47)
[2018-07-23] MEDS: Metoprolol Tartrate 50 MG Tab PO SCH (09:48)
[2018-07-23] MEDS: Multivitamins,Therapeutic Tab PO SCH (09:48)
[2018-07-23] MEDS: Aspirin 81 MG Tab.Chew PO SCH (09:48)
[2018-07-23] MEDS: Benazepril 10 MG Tab PO SCH ×2 (09:49→21:24)
[2018-07-23] MEDS: glipiZIDE 5 MG Tab PO SCH ×2 (09:50→17:21)
[2018-07-23] MEDS: Insulin Lispro 100 Units/ML 3 ML Vial SUBCUT SCH ×3 (09:59→17:20)
[2018-07-23] MEDS: METHYLPHENIDATE 10 MG PO SCH ×2 (10:12→21:23)
[2018-07-23] MEDS: Acetaminophen 325 MG Tab PO PRN (11:03)
--- NOTE | 2018-07-23 11:42 | PCM.PN ---
- General Info Date of Service: 07/23/18 Admission Dx/Problem (Free Text): Admission Diagnosis/Problem Admission Diagnosis/Problem Cellulitis Subjective Update: Patient is 73 y/o male NH resident with PMH of advanced brain Ca, CKD, HTN, DM- II, fluid overload who was brought to the ER with spouse because of redness to upper extremities and increasing redness. He was admitted for b/l UE cellulitis and fluid overload. He was seen this morning at bedside. No acute overnight event. Redness to b/l UE almost resolved. No fever, chills. Patient up in [facility] and appears more active today. He was seen having breakfast. Functional Status: Reports: Pain Controlled - Review of Systems General: Reports: No Symptoms HEENT: Reports: No Symptoms Pulmonary: Reports: No Symptoms Cardiovascular: Reports: No Symptoms Gastrointestinal: Reports: No Symptoms Genitourinary: Reports: No Symptoms Musculoskeletal: Reports: No Symptoms Skin: Reports: No Symptoms Neurological: Reports: No Symptoms Psychiatric: Reports: No Symptoms - Patient Data Vitals - Most Recent: Last Vital Signs Temp 97.7 F 07/23/18 07:56 Pulse 72 07/23/18 09:48 Resp 16 07/23/18 07:56 BP 143/80 H 07/23/18 09:49 Pulse Ox 97 07/23/18 07:56 Weight - Most Recent: 262 lb 8 oz I&O - Last 24 Hours: Intake & Output 07/22/18 07/23/18 07/23/18 22:59 06:59 14:59 Intake Total 461 400 650 Output Total 200 500 Balance 261 -100 650 Lab Results Last 24 Hours: Laboratory Results - last 24 hr 07/22/18 07/22/18 07/22/18 Range/Units 11:40 11:44 16:23 WBC (5.0-10.0) 10^3/uL RBC (4.6-6.2) 10^6/uL Hgb (14.0-18.0) g/dL Hct (40.0-54.0) % MCV (80-100) fL MCH (27.0-34.0) pg MCHC (33.0-35.0) g/dL Plt Count (150-450) 10^3/uL POC Glucose 393 H 284 H (83-110) mg/dl Urine Color Yellow (YELLOW) Urine Appearance Clear (CLEAR) Urine pH 5.5 (5.0-9.0) Ur Specific [place] 1.025 (1.005-1.030) Urine Protein >=300 H (NEGATIVE) Urine Glucose (UA) 100 H (NEGATIVE) Urine Ketones Negative (NEGATIVE) Urine Occult Blood Small H (NEGATIVE) Urine Nitrite Negative (NEGATIVE) Urine Bilirubin Negative (NEGATIVE) Urine Urobilinogen 0.2 (0.2-1.0) mg/dL Ur Leukocyte Esterase Negative (NEGATIVE) Urine RBC 5-10 H /HPF Urine WBC 0-5 (0-5/HPF) /HPF Ur Epithelial Cells Rare /HPF Amorphous Sediment Few (0/HPF) /HPF Urine Bacteria Few (0-FEW/HPF) /HPF Hyaline Casts Moderate H /LPF Granular Casts Moderate /LPF Urine Mucus Moderate H /LPF Urinalysis Comment See note 07/23/18 07/23/18 07/23/18 Range/Units 06:20 07:07 11:22 WBC 11.0 H (5.0-10.0) 10^3/uL RBC 3.89 L (4.6-6.2) 10^6/uL Hgb 12.3 L (14.0-18.0) g/dL Hct 37.0 L (40.0-54.0) % MCV 95.1 (80-100) fL MCH 31.6 (27.0-34.0) pg MCHC 33.2 (33.0-35.0) g/dL Plt Count 74 L (150-450) 10^3/uL POC Glucose 330 H 298 H (83-110) mg/dl Urine Color (YELLOW) Urine Appearance (CLEAR) Urine pH (5.0-9.0) Ur Specific [place] (1.005-1.030) Urine Protein (NEGATIVE) Urine Glucose (UA) (NEGATIVE) Urine Ketones (NEGATIVE) Urine Occult Blood (NEGATIVE) Urine Nitrite (NEGATIVE) Urine Bilirubin (NEGATIVE) Urine Urobilinogen (0.2-1.0) mg/dL Ur Leukocyte Esterase (NEGATIVE) Urine RBC /HPF Urine WBC (0-5/HPF) /HPF Ur Epithelial Cells /HPF Amorphous Sediment (0/HPF) /HPF Urine Bacteria (0-FEW/HPF) /HPF Hyaline Casts /LPF Granular Casts /LPF Urine Mucus /LPF Urinalysis Comment [place] Results Last 24 Hours: Microbiology 07/21/18 14:43 Aerobic Blood Culture - Preliminary Blood - Venous - Lab Draw NO GROWTH AFTER 1 DAY Anaerobic Blood Culture - Preliminary NO GROWTH AFTER 1 DAY 07/21/18 14:35 Aerobic Blood Culture - Preliminary Blood - Venous NO GROWTH AFTER 1 DAY Anaerobic Blood Culture - Preliminary NO GROWTH AFTER 1 DAY Med Orders - Current: Current Medications Acetaminophen (Tylenol) 650 mg PO Q6H PRN PRN Reason: Pain (Mild 1-3)/fever Last Admin: 07/23/18 11:03 Dose: 650 mg Aspirin (Aspirin) 81 mg PO DAILY [facility] Last Admin: 07/23/18 09:48 Dose: 81 mg Benazepril HCl (Lotensin) 10 mg PO BID [facility] Last Admin: 07/23/18 09:49 Dose: 10 mg Bisacodyl (Dulcolax) 5 mg PO DAILY PRN PRN Reason: Constipation Bumetanide (Bumex) 1 mg IVPUSH BIDDIURETIC [facility] Last Admin: 07/23/18 09:47 Dose: 1 mg Dexamethasone (Dexamethasone) 2 mg PO BEDTIME [facility] Last Admin: 07/22/18 22:11 Dose: 2 mg Dexamethasone (Dexamethasone) 4 mg PO QAM [facility] Last Admin: 07/23/18 09:47 Dose: 4 mg Duloxetine HCl (Cymbalta) 30 mg PO BEDTIME [facility] Last Admin: 07/22/18 21:51 Dose: 30 mg Glipizide (Glucotrol) 5 mg PO BID@0800,1700 [facility] Last Admin: 07/23/18 09:50 Dose: 5 mg Heparin Sodium (Porcine) (Heparin Sodium) 5,000 units SUBCUT Q12H [facility] Last Admin: 07/23/18 05:23 Dose: 5,000 units Vancomycin HCl 1 gm/ Sodium (Chloride) 250 mls @ 166.667 mls/hr IV Q12H [facility] Last Admin: 07/23/18 06:22 Dose: 166.667 mls/hr Insulin Human Lispro (Humalog) 0 unit SUBCUT TIDMEALS [facility]; Protocol Last Admin: 07/23/18 09:59 Dose: 4 units Levetiracetam (Keppra) 500 mg PO 1700 [facility] Last Admin: 07/22/18 17:27 Dose: 500 mg Metoprolol Tartrate (Lopressor) 50 mg PO DAILY [facility] Last Admin: 07/23/18 09:48 Dose: 50 mg Multivitamins (Thera) 1 each PO DAILY [facility] Last Admin: 07/23/18 09:48 Dose: 1 each Nifedipine (Procardia Xl) 60 mg PO DAILY [facility] Last Admin: 07/23/18 09:47 Dose: 60 mg Ondansetron HCl (Zofran) 4 mg IVPUSH Q8H PRN PRN Reason: Nausea/Vomiting Pantoprazole Sodium (Protonix) 40 mg PO DAILY [facility] Last Admin: 07/23/18 09:47 Dose: 40 mg Methylphenidate [ Ritalin] 10mg Tab Pt Own Med 0 each PO BID [facility] Last Admin: 07/23/18 10:12 Dose: 1 each Polyethylene Glycol (Miralax) 17 gm PO DAILY PRN PRN Reason: Constipation Potassium Chloride (Klor-Con 10) 20 meq PO BIDMEALS [facility] Last Admin: 07/23/18 09:47 Dose: 20 meq Simvastatin (Zocor) 40 mg PO BEDTIME [facility] Last Admin: 07/22/18 21:51 Dose: 40 mg Vancomycin HCl (Pharmacy To Dose - Vancomycin) 1 dose .XX ASDIRECTED [facility] Discontinued Medications Bumetanide (Bumex) 1 mg IVPUSH BID [facility] Last Admin: 07/22/18 21:50 Dose: 1 mg Glipizide (Glucotrol) 5 mg PO BID [facility] Last Admin: 07/22/18 21:51 Dose: 5 mg Sodium Chloride (Normal Saline) 1,000 mls @ 20 mls/hr IV ASDIRECTED [facility] Last Admin: 07/21/18 14:50 Dose: 20 mls/hr Vancomycin HCl 1.25 gm/ Sodium (Chloride) 250 mls @ 167 mls/hr IV ONETIME ONE Stop: 07/21/18 17:37 Last Admin: 07/21/18 16:28 Dose: 167 mls/hr Vancomycin HCl 1 gm/ Sodium (Chloride) 250 mls @ 166.667 mls/hr IV Q12H [facility] - Exam Quality Assessment: DVT Prophylaxis General: Alert, Oriented HEENT: Pupils Equal, Pupils Reactive, EOMI, Mucous Membr. Moist/[place] Neck: Supple Lungs: Clear to Auscultation, Normal Respiratory Effort Cardiovascular: Regular Rate, Regular Rhythm GI/Abdominal Exam: Normal Bowel Sounds, Soft, Non-Tender, No Organomegaly, No Distention, No Abnormal Bruit, No Mass, Pelvis Stable (Male) Exam: No Hernia, Normal Inspection, Normal Prostate, Circumcised Back Exam: Normal Inspection, Full Range of Motion Extremities: Normal Inspection, Normal Range of Motion, Non-Tender, No Pedal Edema, Normal Capillary Refill Skin: Warm, Dry, Intact Wound/Incisions: Healing Well Neurological: No New Focal Deficit Psy/Mental Status: Alert, Normal Affect, Normal Mood - Problem List & Annotations (1) Anasarca SNOMED Code(s): 662503437, 644328634 Code(s): R60.1 - GENERALIZED EDEMA Status: Acute Current Visit: Yes (2) Brain cancer SNOMED Code(s): 145645513 Code(s): C71.9 - MALIGNANT NEOPLASM OF BRAIN, UNSPECIFIED Status: Acute Current Visit: No Qualifiers: Malignant neoplasm of brain location: unspecified location Qualified Code(s ): C71.9 - Malignant neoplasm of brain, unspecified (3) Cellulitis of upper extremity Status: Acute Current Visit: No Qualifiers: Laterality: unspecified laterality Qualified Code(s): L03.119 - Cellulitis of unspecified part of limb (4) Edema of right lower extremity SNOMED Code(s): 497500304 Code(s): R60.0 - LOCALIZED EDEMA Status: Acute Current Visit: No (5) Weakness SNOMED Code(s): 13984431 Code(s): R53.1 - WEAKNESS Status: Acute Current Visit: No (6) Chronic kidney disease, unspecified SNOMED Code(s): 876899883 Code(s): N18.9 - CHRONIC KIDNEY DISEASE, UNSPECIFIED Status: Chronic Priority: Medium Current Visit: No Qualifiers: Chronic kidney disease stage: unspecified stage Qualified Code(s): N18.9 - Chronic kidney disease, unspecified (7) Essential (primary) hypertension SNOMED Code(s): 80786652 Code(s): I10 - ESSENTIAL (PRIMARY) HYPERTENSION Status: Chronic Current Visit: No (8) Type 2 diabetes mellitus without complications SNOMED Code(s): 181107248 Code(s): E11.9 - TYPE 2 DIABETES MELLITUS WITHOUT COMPLICATIONS Status: Chronic Priority: Medium Current Visit: No Qualifiers: Diabetes mellitus core dropper insulin use: without skilled nursing use Qualified Code(s): E11.9 - Type 2 diabetes mellitus without complications - Problem List Review Problem List Initiated/Reviewed/Updated: Yes - My Orders Last 24 Hours: My Active Orders 07/22/18 17:00 levETIRAcetam [Keppra] 500 mg PO 1700 07/22/18 18:00 Insulin Lispro [HumaLOG] See Protocol SUBCUT TIDMEALS Potassium Chloride [Klor-Con 10] 20 meq PO BIDMEALS 07/23/18 08:00 Bumetanide [Bumex] 1 mg IVPUSH BIDDIURETIC glipiZIDE [Glucotrol] 5 mg PO BID@0800,1700 07/23/18 11:40 BASIC METABOLIC PANEL,BMP [CHEM] Routine 07/24/18 05:00 CBC W/O DIFF,HEMOGRAM [HEME] DAILY 07/25/18 05:00 CBC W/O DIFF,HEMOGRAM [HEME] DAILY - Plan Plan:: Cellulitis to b/l upper extremities Continue IV Vanco Follow blood cx Possible sepsis due to above Resolved Generalized Anasarca due hypoalbuminemia Encourage adequate calorie intake IV Bumex bid Daily weight Fluid restrictions Follow K daily and correct as needed Elevated D-dimer This could be due to malignancy He is not hypoxic He has generalized swelling will monitor closely Advanced brain Ca Follows with Dr. Candelaria. Continue Dexamethasone DM-II Controlled Continue home medication HTN BP within acceptable limit Continue home medication CKD Stable creatinine and GFR monitor renal function closely Bed bound status Ensure frequent turn in bed Regular diet DNR/DNI
[2018-07-23 11:55] LABS: ANION GAP 14.1
[2018-07-23] MEDS: levETIRAcetam 500 MG Tab PO SCH (17:21)
[2018-07-23] MEDS: Simvastatin 40 MG Tab PO SCH (21:24)
[2018-07-23] MEDS: DULoxetine 30 MG Cap PO SCH (21:24)
[2018-07-23] MEDS: Dexamethasone 2 MG Tab PO SCH (21:25)
[2018-07-23] MEDS: Sodium Chloride 0.9% 10 ML Syringe FLUSH PRN (21:26)
[2018-07-24] MEDS: Heparin Sodium 5,000 Units/ML Vial SUBCUT SCH ×2 (05:26→17:46)
[2018-07-24 07:07] LABS: ANION GAP 13.1
[2018-07-24] MEDS ORDERED: Bumetanide 1 MG Tab PO SCH ×2 (08:00→09:00)
[2018-07-24] MEDS: Insulin Lispro 100 Units/ML 3 ML Vial SUBCUT SCH ×3 (08:27→17:48)
[2018-07-24] MEDS: glipiZIDE 5 MG Tab PO SCH ×2 (08:29→17:46)
[2018-07-24] MEDS: Potassium Chloride 10 MEQ Tab.ER PO SCH ×2 (08:30→17:45)
[2018-07-24] MEDS: NIFEdipine 30 MG Tab.ER PO SCH (09:43)
[2018-07-24] MEDS: Metoprolol Tartrate 50 MG Tab PO SCH (09:44)
[2018-07-24] MEDS: Dexamethasone 4 MG Tab PO SCH (09:44)
[2018-07-24] MEDS: Aspirin 81 MG Tab.Chew PO SCH (09:44)
[2018-07-24] MEDS: Multivitamins,Therapeutic Tab PO SCH (09:45)
[2018-07-24] MEDS: METHYLPHENIDATE 10 MG PO SCH ×2 (09:45→20:16)
[2018-07-24] MEDS: Benazepril 10 MG Tab PO SCH ×2 (09:45→20:19)
[2018-07-24] MEDS: Pantoprazole 40 MG Tab.CR PO SCH (09:46)
--- NOTE | 2018-07-24 10:44 | PCM.PN ---
- General Info Date of Service: 07/24/18 Admission Dx/Problem (Free Text): Admission Diagnosis/Problem Admission Diagnosis/Problem Cellulitis Subjective Update: Patient is 73 y/o male NH resident with PMH of advanced brain Ca, CKD, HTN, DM- II, fluid overload who was brought to the ER with spouse because of redness to upper extremities and increasing redness. He was admitted for b/l UE cellulitis and fluid overload. He was seen this morning at bedside. No acute overnight event. Redness to b/l UE improved. No fever, chills. Anasarca also improved Functional Status: Reports: Pain Controlled - Review of Systems General: Reports: No Symptoms HEENT: Reports: No Symptoms Pulmonary: Reports: No Symptoms Cardiovascular: Reports: No Symptoms Gastrointestinal: Reports: No Symptoms Genitourinary: Reports: No Symptoms Musculoskeletal: Reports: No Symptoms Skin: Reports: No Symptoms Neurological: Reports: No Symptoms Psychiatric: Reports: No Symptoms - Patient Data Vitals - Most Recent: Last Vital Signs Temp 97.6 F 07/24/18 07:32 Pulse 70 07/24/18 09:44 Resp 20 07/24/18 07:32 BP 140/73 07/24/18 09:45 Pulse Ox 95 07/24/18 07:32 Weight - Most Recent: 261 lb 3.2 oz I&O - Last 24 Hours: Intake & Output 07/23/18 07/24/18 07/24/18 22:59 06:59 14:59 Intake Total 700 100 440 Output Total 1100 Balance -400 100 440 Lab Results Last 24 Hours: Laboratory Results - last 24 hr 07/23/18 07/23/18 07/23/18 Range/Units 06:20 11:22 16:53 WBC (5.0-10.0) 10^3/uL RBC (4.6-6.2) 10^6/uL Hgb (14.0-18.0) g/dL Hct (40.0-54.0) % MCV (80-100) fL MCH (27.0-34.0) pg MCHC (33.0-35.0) g/dL Plt Count (150-450) 10^3/uL Sodium 139 (135-145) mmol/L Potassium 4.1 (3.6-5.0) mmol/L Chloride 109 (101-111) mmol/L Carbon Dioxide 20.0 L (21.0-31.0) mmol/L Anion Gap 14.1 BUN 42 H (7-18) mg/dL Creatinine 1.4 H (0.6-1.3) mg/dL Est Cr Clr Drug Dosing 53.82 mL/min Estimated GFR (MDRD) 50 Glucose 358 H (74-105) mg/dL POC Glucose 298 H 244 H (83-110) mg/dl Calcium 7.8 L (8.4-10.2) mg/dl 07/24/18 07/24/18 07/24/18 Range/Units 06:35 06:35 07:45 WBC 10.0 (5.0-10.0) 10^3/uL RBC 3.96 L (4.6-6.2) 10^6/uL Hgb 12.3 L (14.0-18.0) g/dL Hct 37.7 L (40.0-54.0) % MCV 95.2 (80-100) fL MCH 31.1 (27.0-34.0) pg MCHC 32.6 L (33.0-35.0) g/dL Plt Count 85 L (150-450) 10^3/uL Sodium 139 (135-145) mmol/L Potassium 4.1 (3.6-5.0) mmol/L Chloride 108 (101-111) mmol/L Carbon Dioxide 22.0 (21.0-31.0) mmol/L Anion Gap 13.1 BUN 37 H (7-18) mg/dL Creatinine 1.2 (0.6-1.3) mg/dL Est Cr Clr Drug Dosing 62.79 mL/min Estimated GFR (MDRD) 59 Glucose 275 H (74-105) mg/dL POC Glucose 238 H (83-110) mg/dl Calcium 7.7 L (8.4-10.2) mg/dl [facility] Results Last 24 Hours: Microbiology 07/21/18 14:43 Aerobic Blood Culture - Preliminary Blood - Venous - Lab Draw NO GROWTH AFTER 2 DAYS Anaerobic Blood Culture - Preliminary NO GROWTH AFTER 2 DAYS 07/21/18 14:35 Aerobic Blood Culture - Preliminary Blood - Venous NO GROWTH AFTER 2 DAYS Anaerobic Blood Culture - Preliminary NO GROWTH AFTER 2 DAYS Med Orders - Current: Current Medications Acetaminophen (Tylenol) 650 mg PO Q6H PRN PRN Reason: Pain (Mild 1-3)/fever Last Admin: 07/23/18 11:03 Dose: 650 mg Aspirin (Aspirin) 81 mg PO DAILY [facility] Last Admin: 07/24/18 09:44 Dose: 81 mg Benazepril HCl (Lotensin) 10 mg PO BID [facility] Last Admin: 07/24/18 09:45 Dose: 10 mg Bisacodyl (Dulcolax) 5 mg PO DAILY PRN PRN Reason: Constipation Bumetanide (Bumex) 1 mg PO BIDDIURETIC [facility] Clindamycin HCl (Cleocin) 300 mg PO TID [facility] Dexamethasone (Dexamethasone) 2 mg PO BEDTIME [facility] Last Admin: 07/23/18 21:25 Dose: 2 mg Dexamethasone (Dexamethasone) 4 mg PO QAM [facility] Last Admin: 07/24/18 09:44 Dose: 4 mg Duloxetine HCl (Cymbalta) 30 mg PO BEDTIME [facility] Last Admin: 07/23/18 21:24 Dose: 30 mg Glipizide (Glucotrol) 5 mg PO BID@0800,1700 [facility] Last Admin: 07/24/18 08:29 Dose: 5 mg Heparin Sodium (Porcine) (Heparin Sodium) 5,000 units SUBCUT Q12H [facility] Last Admin: 07/24/18 05:26 Dose: 5,000 units Insulin Human Lispro (Humalog) 0 unit SUBCUT TIDMEALS [facility]; Protocol Last Admin: 07/24/18 08:27 Dose: 2 units Levetiracetam (Keppra) 500 mg PO 1700 [facility] Last Admin: 07/23/18 17:21 Dose: 500 mg Metoprolol Tartrate (Lopressor) 50 mg PO DAILY [facility] Last Admin: 07/24/18 09:44 Dose: 50 mg Multivitamins (Thera) 1 each PO DAILY [facility] Last Admin: 07/24/18 09:45 Dose: 1 each Nifedipine (Procardia Xl) 60 mg PO DAILY [facility] Last Admin: 07/24/18 09:43 Dose: 60 mg Ondansetron HCl (Zofran) 4 mg IVPUSH Q8H PRN PRN Reason: Nausea/Vomiting Pantoprazole Sodium (Protonix) 40 mg PO DAILY [facility] Last Admin: 07/24/18 09:46 Dose: 40 mg Methylphenidate [ Ritalin] 10mg Tab Pt Own Med 0 each PO BID [facility] Last Admin: 07/23/18 21:23 Dose: 1 each Polyethylene Glycol (Miralax) 17 gm PO DAILY PRN PRN Reason: Constipation Potassium Chloride (Klor-Con 10) 20 meq PO BIDMEALS [facility] Last Admin: 07/24/18 08:30 Dose: 20 meq Simvastatin (Zocor) 40 mg PO BEDTIME [facility] Last Admin: 07/23/18 21:24 Dose: 40 mg Sodium Chloride (Saline Flush) 10 ml FLUSH ASDIRECTED PRN PRN Reason: Keep Vein Open Last Admin: 07/23/18 21:26 Dose: 10 ml Discontinued Medications Bumetanide (Bumex) 1 mg IVPUSH BID [facility] Last Admin: 07/22/18 21:50 Dose: 1 mg Bumetanide (Bumex) 1 mg IVPUSH BIDDIURETIC [facility] Last Admin: 07/23/18 15:38 Dose: 1 mg Bumetanide (Bumex) 1 mg PO BID [facility] Glipizide (Glucotrol) 5 mg PO BID [facility] Last Admin: 07/22/18 21:51 Dose: 5 mg Sodium Chloride (Normal Saline) 1,000 mls @ 20 mls/hr IV ASDIRECTED [facility] Last Admin: 07/21/18 14:50 Dose: 20 mls/hr Vancomycin HCl 1.25 gm/ Sodium (Chloride) 250 mls @ 167 mls/hr IV ONETIME ONE Stop: 07/21/18 17:37 Last Admin: 07/21/18 16:28 Dose: 167 mls/hr Vancomycin HCl 1 gm/ Sodium (Chloride) 250 mls @ 166.667 mls/hr IV Q12H [facility] Vancomycin HCl 1 gm/ Sodium (Chloride) 250 mls @ 166.667 mls/hr IV Q12H [facility] Last Admin: 07/23/18 06:22 Dose: 166.667 mls/hr Vancomycin HCl (Pharmacy To Dose - Vancomycin) 1 dose .XX ASDIRECTED [facility] - Exam Quality Assessment: DVT Prophylaxis General: Alert, Oriented HEENT: Pupils Equal, Pupils Reactive, EOMI, Mucous Membr. Moist/[place] Neck: Supple Lungs: Clear to Auscultation, Normal Respiratory Effort Cardiovascular: Regular Rate, Regular Rhythm GI/Abdominal Exam: Normal Bowel Sounds, Soft, Non-Tender, No Organomegaly, No Distention, No Abnormal Bruit, No Mass, Pelvis Stable (Male) Exam: No Hernia, Normal Inspection, Normal Prostate, Circumcised Back Exam: Normal Inspection, Full Range of Motion Extremities: Normal Inspection, Normal Range of Motion, Non-Tender, No Pedal Edema, Normal Capillary Refill Skin: Warm, Dry, Intact Wound/Incisions: Healing Well Neurological: No New Focal Deficit Psy/Mental Status: Alert, Normal Affect, Normal Mood - Problem List & Annotations (1) Anasarca SNOMED Code(s): 366993238, 778561532 Code(s): R60.1 - GENERALIZED EDEMA Status: Acute Current Visit: Yes (2) Brain cancer SNOMED Code(s): 899842523 Code(s): C71.9 - MALIGNANT NEOPLASM OF BRAIN, UNSPECIFIED Status: Acute Current Visit: No Qualifiers: Malignant neoplasm of brain location: unspecified location Qualified Code(s ): C71.9 - Malignant neoplasm of brain, unspecified (3) Cellulitis of upper extremity Status: Acute Current Visit: No Qualifiers: Laterality: unspecified laterality Qualified Code(s): L03.119 - Cellulitis of unspecified part of limb (4) Edema of right lower extremity SNOMED Code(s): 152602884 Code(s): R60.0 - LOCALIZED EDEMA Status: Acute Current Visit: No (5) Weakness SNOMED Code(s): 29648206 Code(s): R53.1 - WEAKNESS Status: Acute Current Visit: No (6) Chronic kidney disease, unspecified SNOMED Code(s): 205684392 Code(s): N18.9 - CHRONIC KIDNEY DISEASE, UNSPECIFIED Status: Chronic Priority: Medium Current Visit: No Qualifiers: Chronic kidney disease stage: unspecified stage Qualified Code(s): N18.9 - Chronic kidney disease, unspecified (7) Essential (primary) hypertension SNOMED Code(s): 66188656 Code(s): I10 - ESSENTIAL (PRIMARY) HYPERTENSION Status: Chronic Current Visit: No (8) Type 2 diabetes mellitus without complications SNOMED Code(s): 163947218 Code(s): E11.9 - TYPE 2 DIABETES MELLITUS WITHOUT COMPLICATIONS Status: Chronic Priority: Medium Current Visit: No Qualifiers: Diabetes mellitus jail insulin use: without exterminator helper use Qualified Code(s): E11.9 - Type 2 diabetes mellitus without complications - Problem List Review Problem List Initiated/Reviewed/Updated: Yes - My Orders Last 24 Hours: My Active Orders 07/23/18 12:18 Sodium Chloride 0.9% [Saline Flush] 10 ml FLUSH ASDIRECTED PRN 07/24/18 08:00 Bumetanide [Bumex] 1 mg PO BIDDIURETIC 07/24/18 09:00 Clindamycin HCl [Cleocin] 300 mg PO TID 07/25/18 05:00 BASIC METABOLIC PANEL,BMP [CHEM] DAILY CBC W/O DIFF,HEMOGRAM [HEME] DAILY 07/26/18 05:00 BASIC METABOLIC PANEL,BMP [CHEM] DAILY - Plan Plan:: Cellulitis to b/l upper extremities D/C IV Vanco Start PO Clindamycin Possible sepsis due to above Resolved Generalized Anasarca due hypoalbuminemia Improving Encourage adequate calorie intake Bumex PO 0.5 mg bib Daily weight Fluid restrictions Follow K daily and correct as needed Elevated D-dimer This could be due to malignancy He is not hypoxic He has generalized swelling will monitor closely Advanced brain Ca Follows with Dr. Candelaria. Continue Dexamethasone DM-II Controlled Continue home medication HTN BP within acceptable limit Continue home medication CKD Stable creatinine and GFR monitor renal function closely Bed bound status Ensure frequent turn in bed Regular diet DNR/DNI
[2018-07-24] MEDS: Clindamycin HCl 150 MG Cap PO SCH ×3 (11:17→20:19)
[2018-07-24] MEDS: Sodium Chloride 0.9% 10 ML Syringe FLUSH PRN (15:22)
[2018-07-24] MEDS: Bumetanide 1 MG Tab PO SCH (17:44)
[2018-07-24] MEDS: levETIRAcetam 500 MG Tab PO SCH (17:44)
[2018-07-24] MEDS: Dexamethasone 2 MG Tab PO SCH (20:18)
[2018-07-24] MEDS: Simvastatin 40 MG Tab PO SCH (20:19)
[2018-07-24] MEDS: DULoxetine 30 MG Cap PO SCH (20:20)
[2018-07-25] MEDS: Heparin Sodium 5,000 Units/ML Vial SUBCUT SCH (05:25)
[2018-07-25] MEDS: Bumetanide 1 MG Tab PO SCH (05:26)
[2018-07-25] MEDS: Insulin Lispro 100 Units/ML 3 ML Vial SUBCUT SCH ×2 (07:24→12:11)
[2018-07-25] MEDS: Clindamycin HCl 150 MG Cap PO SCH (08:40)
[2018-07-25] MEDS: Potassium Chloride 10 MEQ Tab.ER PO SCH (08:41)
[2018-07-25] MEDS: glipiZIDE 5 MG Tab PO SCH (08:41)
[2018-07-25] MEDS: Dexamethasone 4 MG Tab PO SCH (08:41)
[2018-07-25] MEDS: Multivitamins,Therapeutic Tab PO SCH (08:41)
[2018-07-25] MEDS: Aspirin 81 MG Tab.Chew PO SCH (08:41)
[2018-07-25] MEDS: Pantoprazole 40 MG Tab.CR PO SCH (08:42)
[2018-07-25] MEDS: NIFEdipine 30 MG Tab.ER PO SCH (08:47)
[2018-07-25] MEDS: Benazepril 10 MG Tab PO SCH (08:48)
[2018-07-25] MEDS: Metoprolol Tartrate 50 MG Tab PO SCH (08:48)
[2018-07-25] MEDS: METHYLPHENIDATE 10 MG PO SCH (08:51)
[2018-07-25 09:43] VITALS: BP 119/57
--- NOTE | 2018-07-25 10:17 | PCM.DCSUM1 ---
Discharge Summary - Hospital Course Free Text/Narrative:: Patient is 73 y/o [place] with PMH of advanced brain Ca, CKD, HTN, DM- II, fluid overload who was brought to the ER with spouse because of redness to upper extremities and increasing redness. He was admitted for b/l UE cellulitis and fluid overload. He received IV abx and diuretics with significant improvement. He is being discharge to SNF in stable condition. He will follow with PCP. Diagnosis: Stroke: No - Discharge Data Discharge Date: 07/25/18 Discharge Disposition: DC/Tfer to SNF 03 Condition: Stable - Discharge Diagnosis/Problem(s) (1) Anasarca SNOMED Code(s): 784038233, 933097710 ICD Code: R60.1 - GENERALIZED EDEMA Status: Acute Current Visit: Yes (2) Brain cancer SNOMED Code(s): 818454286 ICD Code: C71.9 - MALIGNANT NEOPLASM OF BRAIN, UNSPECIFIED Status: Acute Current Visit: No Qualifiers: Malignant neoplasm of brain location: unspecified location Qualified Code(s ): C71.9 - Malignant neoplasm of brain, unspecified (3) Cellulitis of upper extremity Status: Acute Current Visit: No Qualifiers: Laterality: unspecified laterality Qualified Code(s): L03.119 - Cellulitis of unspecified part of limb (4) Edema of right lower extremity SNOMED Code(s): 630321433 ICD Code: R60.0 - LOCALIZED EDEMA Status: Acute Current Visit: No (5) Weakness SNOMED Code(s): 98989684 ICD Code: R53.1 - WEAKNESS Status: Acute Current Visit: No (6) Chronic kidney disease, unspecified SNOMED Code(s): 335009836 ICD Code: N18.9 - CHRONIC KIDNEY DISEASE, UNSPECIFIED Status: Chronic Priority: Medium Current Visit: No Qualifiers: Chronic kidney disease stage: unspecified stage Qualified Code(s): N18.9 - Chronic kidney disease, unspecified (7) Essential (primary) hypertension SNOMED Code(s): 01357852 ICD Code: I10 - ESSENTIAL (PRIMARY) HYPERTENSION Status: Chronic Current Visit: No (8) Type 2 diabetes mellitus without complications SNOMED Code(s): 878696982 ICD Code: E11.9 - TYPE 2 DIABETES MELLITUS WITHOUT COMPLICATIONS Status: Chronic Priority: Medium Current Visit: No Qualifiers: Diabetes mellitus detention insulin use: without detention use Qualified Code(s): E11.9 - Type 2 diabetes mellitus without complications - Patient Summary/Data Consults: Consultations 07/21/18 17:21 OT Evaluation and Treatment [CONS] Routine PT Evaluation and Treatment [CONS] Routine - Patient Instructions Diet: Heart Healthy Diet Fluid Restriction: 1500 mL Activity: As Tolerated Driving: Do Not Drive Notify Provider of: Fever, Increased Pain, Swelling and Redness, Nausea and/or Vomiting - Discharge Plan *PRESCRIPTION DRUG MONITORING PROGRAM REVIEWED*: Not Applicable *COPY OF PRESCRIPTION DRUG MONITORING REPORT IN PATIENT IRMA: Not Applicable Prescriptions/Med Rec: Bumetanide [Bumex] 0.5 mg PO Q12H #60 tablet Potassium Chloride [Klor-Con 10] 20 meq PO BIDMEALS #60 tab.er Home Medications: Home Meds Aspirin [Carlie Chewable Aspirin] 81 mg PO DAILY 06/07/13 [History] Benazepril [Lotensin] 10 mg PO BID 06/07/13 [History] Multivitamin [Multivitamins] 1 tab PO DAILY 06/07/13 [History] glipiZIDE [Glucotrol] 5 mg PO BID 06/07/13 [History] Metoprolol Tartrate 50 mg PO DAILY 05/12/16 [History] Simvastatin [Zocor] 40 mg PO BEDTIME 05/12/16 [History] Dexamethasone 2 mg PO BEDTIME 04/20/18 [History] Pantoprazole [ProTONIX] 40 mg PO DAILY 04/20/18 [History] levETIRAcetam [Keppra] 500 mg PO 1700 04/20/18 [History] Methylphenidate [Ritalin] 20 mg PO BID 04/26/18 [History] NIFEdipine [Procardia XL] 60 mg PO DAILY 04/26/18 [History] DULoxetine [Cymbalta] 30 mg PO BEDTIME 07/21/18 [History] Dexamethasone 4 mg PO QAM 07/21/18 [History] Bumetanide [Bumex] 0.5 mg PO Q12H #60 tablet 07/25/18 [Rx] Potassium Chloride [Klor-Con 10] 20 meq PO BIDMEALS #60 tab.er 07/25/18 [Rx] Oxygen Therapy Mode: Room Air Forms: ED Department Discharge Referrals: PCP,Unobtain [Ordering Only Provider] - - Discharge Summary/Plan Comment DC Time >30 min.: Yes - General Info Date of Service: 07/25/18 Admission Dx/Problem (Free Text: Admission Diagnosis/Problem Admission Diagnosis/Problem Cellulitis Subjective Update: Patient is 73 y/o male [place] resident with PMH of advanced brain Ca, CKD, HTN, DM- II, fluid overload who was brought to the ER with spouse because of redness to upper extremities and increasing redness. He was admitted for b/l UE cellulitis and fluid overload. He was seen this morning at bedside. No acute overnight event. Redness to b/l UE improved. No fever, chills. Anasarca also improved Functional Status: Reports: Pain Controlled - Review of Systems General: Reports: No Symptoms HEENT: Reports: No Symptoms Pulmonary: Reports: No Symptoms Cardiovascular: Reports: No Symptoms Gastrointestinal: Reports: No Symptoms Genitourinary: Reports: No Symptoms Musculoskeletal: Reports: No Symptoms Skin: Reports: No Symptoms Neurological: Reports: No Symptoms Psychiatric: Reports: No Symptoms - Patient Data Vitals - Most Recent: Last Vital Signs Temp 98.4 F 07/25/18 08:00 Pulse 68 07/25/18 08:48 Resp 20 07/25/18 08:00 BP 119/57 L 07/25/18 09:40 Pulse Ox 95 07/25/18 08:00 Weight - Most Recent: 258 lb 4.8 oz I&O - Last 24 hours: Intake & Output 07/24/18 07/25/18 07/25/18 22:59 06:59 14:59 Intake Total 440 400 Output Total 200 250 Balance 240 -250 400 Lab Results - Last 24 hrs: Laboratory Results - last 24 hr 07/24/18 07/24/18 07/25/18 Range/Units 12:00 17:05 07:05 POC Glucose 217 H 207 H 140 H (83-110) mg/dl RENE Results - Last 24 hrs: Microbiology 07/21/18 14:43 Aerobic Blood Culture - Preliminary Blood - Venous - Lab Draw NO GROWTH AFTER 3 DAYS Anaerobic Blood Culture - Preliminary NO GROWTH AFTER 3 DAYS 07/21/18 14:35 Aerobic Blood Culture - Preliminary Blood - Venous NO GROWTH AFTER 3 DAYS Anaerobic Blood Culture - Preliminary NO GROWTH AFTER 3 DAYS Med Orders - Current: Current Medications Acetaminophen (Tylenol) 650 mg PO Q6H PRN PRN Reason: Pain (Mild 1-3)/fever Last Admin: 07/23/18 11:03 Dose: 650 mg Aspirin (Aspirin) 81 mg PO DAILY [facility] Last Admin: 07/25/18 08:41 Dose: 81 mg Benazepril HCl (Lotensin) 10 mg PO BID [facility] Last Admin: 07/25/18 08:48 Dose: 10 mg Bisacodyl (Dulcolax) 5 mg PO DAILY PRN PRN Reason: Constipation Bumetanide (Bumex) 0.5 mg PO Q12H [facility] Last Admin: 07/25/18 05:26 Dose: 0.5 mg Clindamycin HCl (Cleocin) 300 mg PO TID [facility] Last Admin: 07/25/18 08:40 Dose: 300 mg Dexamethasone (Dexamethasone) 2 mg PO BEDTIME [facility] Last Admin: 07/24/18 20:18 Dose: 2 mg Dexamethasone (Dexamethasone) 4 mg PO QAM [facility] Last Admin: 07/25/18 08:41 Dose: 4 mg Duloxetine HCl (Cymbalta) 30 mg PO BEDTIME [facility] Last Admin: 07/24/18 20:20 Dose: 30 mg Glipizide (Glucotrol) 5 mg PO BID@0800,1700 [facility] Last Admin: 07/25/18 08:41 Dose: 5 mg Heparin Sodium (Porcine) (Heparin Sodium) 5,000 units SUBCUT Q12H [facility] Last Admin: 07/25/18 05:25 Dose: 5,000 units Insulin Human Lispro (Humalog) 0 unit SUBCUT TIDMEALS [facility]; Protocol Last Admin: 07/25/18 07:24 Dose: Not Given Levetiracetam (Keppra) 500 mg PO 1700 [facility] Last Admin: 07/24/18 17:44 Dose: 500 mg Metoprolol Tartrate (Lopressor) 50 mg PO DAILY [facility] Last Admin: 07/25/18 08:48 Dose: 50 mg Multivitamins (Thera) 1 each PO DAILY [facility] Last Admin: 07/25/18 08:41 Dose: 1 each Nifedipine (Procardia Xl) 60 mg PO DAILY [facility] Last Admin: 07/25/18 08:47 Dose: 60 mg Ondansetron HCl (Zofran) 4 mg IVPUSH Q8H PRN PRN Reason: Nausea/Vomiting Pantoprazole Sodium (Protonix) 40 mg PO DAILY [facility] Last Admin: 07/25/18 08:42 Dose: 40 mg Methylphenidate [ Ritalin] 10mg Tab Pt Own Med 0 each PO BID [facility] Last Admin: 07/25/18 08:51 Dose: Not Given Polyethylene Glycol (Miralax) 17 gm PO DAILY PRN PRN Reason: Constipation Potassium Chloride (Klor-Con 10) 20 meq PO BIDMEALS [facility] Last Admin: 07/25/18 08:41 Dose: 20 meq Simvastatin (Zocor) 40 mg PO BEDTIME [facility] Last Admin: 07/24/18 20:19 Dose: 40 mg Sodium Chloride (Saline Flush) 10 ml FLUSH ASDIRECTED PRN PRN Reason: Keep Vein Open Last Admin: 07/24/18 15:22 Dose: 10 ml Discontinued Medications Bumetanide (Bumex) 1 mg IVPUSH BID [facility] Last Admin: 07/22/18 21:50 Dose: 1 mg Bumetanide (Bumex) 1 mg IVPUSH BIDDIURETIC [facility] Last Admin: 07/23/18 15:38 Dose: 1 mg Bumetanide (Bumex) 1 mg PO BID MATTHEW Bumetanide (Bumex) 1 mg PO BIDDIURETIC [facility] Last Admin: 07/24/18 10:42 Dose: Not Given Glipizide (Glucotrol) 5 mg PO BID [facility] Last Admin: 07/22/18 21:51 Dose: 5 mg Sodium Chloride (Normal Saline) 1,000 mls @ 20 mls/hr IV ASDIRECTED [facility] Last Admin: 07/21/18 14:50 Dose: 20 mls/hr Vancomycin HCl 1.25 gm/ Sodium (Chloride) 250 mls @ 167 mls/hr IV ONETIME ONE Stop: 07/21/18 17:37 Last Admin: 07/21/18 16:28 Dose: 167 mls/hr Vancomycin HCl 1 gm/ Sodium (Chloride) 250 mls @ 166.667 mls/hr IV Q12H MATTHEW Vancomycin HCl 1 gm/ Sodium (Chloride) 250 mls @ 166.667 mls/hr IV Q12H [facility] Last Admin: 07/23/18 06:22 Dose: 166.667 mls/hr Vancomycin HCl (Pharmacy To Dose - Vancomycin) 1 dose .XX ASDIRECTED MATTHEW - Exam Quality Assessment: Reports: DVT Prophylaxis General: Reports: Alert, Oriented HEENT: Reports: Pupils Equal, Pupils Reactive, EOMI, Mucous Membr. Moist/[place] Neck: Reports: Supple Lungs: Reports: Clear to Auscultation, Normal Respiratory Effort Cardiovascular: Reports: Regular Rate, Regular Rhythm GI/Abdominal Exam: Normal Bowel Sounds, Soft, Non-Tender, No Organomegaly, No Distention, No Abnormal Bruit, No Mass, Pelvis Stable (Male) Exam: No Hernia, Normal Inspection, Normal Prostate, Circumcised Rectal (Males) Exam: Normal Exam, Normal Rectal Tone, Prostate Normal Back Exam: Reports: Normal Inspection, Full Range of Motion Extremities: Normal Inspection, Normal Range of Motion, Non-Tender, No Pedal Edema, Normal Capillary Refill Skin: Reports: Warm, Dry, Intact Wound/Incisions: Reports: Healing Well Neurological: Reports: No New Focal Deficit Psy/Mental Status: Reports: Alert, Normal Affect, Normal Mood
== END 2018-07-25 11:40 | DRG 872 ==
LOC: DL.ED 13:56 → UNDOADMIN 17:13 → DL.MS 17:13
PROVIDERS: ADMIT Student in an Organized Health Care Education/Training Program; ATTEND Student in an Organized Health Care Education/Training Program
DX: A41.9 Sepsis, unspecified organism (principal); L03.114 Cellulitis of left upper limb; C71.9 Malignant neoplasm of brain, unspecified; L03.113 Cellulitis of right upper limb; E11.628 Type 2 diabetes mellitus with other skin complications; E11.22 Type 2 diabetes mellitus with diabetic chronic kidney disease; I12.9 Hypertensive chronic kidney disease with stage 1 through stage 4 chronic kidney disease, or unspecified chronic kidney disease; N18.9 Chronic kidney disease, unspecified; H54.7 Unspecified visual loss; H91.90 Unspecified hearing loss, unspecified ear; E78.00 Pure hypercholesterolemia, unspecified; K21.9 Gastro-esophageal reflux disease without esophagitis; G89.29 Other chronic pain; M54.9 Dorsalgia, unspecified; R53.1 Weakness; E88.09 Other disorders of plasma-protein metabolism, not elsewhere classified; Z66 Do not resuscitate; E87.70 Fluid overload, unspecified; Z74.01 Bed confinement status; Z79.84 Long term (current) use of oral hypoglycemic drugs; Z79.899 Other long term (current) drug therapy; Z79.82 Long term (current) use of aspirin; Z90.49 Acquired absence of other specified parts of digestive tract
CPT/HCPCS: 36415; 80048; 80053; 81001; 82962; 83605; 83735; 83880; 84100; 84132; 85025; 85027; 85379; 87040; 99285; A9270-GY; J1642; J1644; J1815; J3370; J3490; J7030; J7050; J8540

== ENCOUNTER 2018-08-12 09:49 | Emergency (ER) | payer MEDICARE, BC ==
--- NOTE | 2018-08-12 10:18 | EDM.PDOC ---
ED HPI GENERAL MEDICAL PROBLEM - General Chief Complaint: General Stated Complaint: AMBULANCE Time Seen by Provider: 08/12/18 10:18 Source of Information: Reports: Patient, EMS, Family (), [facility] Records, Old Records, Provider (Dr. Thompson), RN, RN Notes Reviewed - History of Present Illness INITIAL COMMENTS - FREE TEXT/NARRATIVE: [facility] with report that he developed a cough about 2 days ago and has become hypoxic. Dr. Thompson called to report pt may have had a seizure yesterday according to her [facility] staff, and that the pt has been in A -fib at times. The pt is lethargic and confused and unable to provide any history. Pt's states she thinks he has developed pneumonia because of the cough. Pt is DNR/DNI code statue per [facility] records, confirms DNR status. Onset: Gradual Duration: Day(s): (2), Constant, Getting Worse Location: Reports: Generalized Improves with: Reports: None Worsens with: Reports: None - Related Data Allergies Allergy/AdvReac Type Severity Reaction Status Date / Time No Known Allergies Allergy Verified 07/21/18 17:20 Home Meds: Home Meds Aspirin [Carlie Chewable Aspirin] 81 mg PO DAILY 06/07/13 [History] Benazepril [Lotensin] 10 mg PO BID 06/07/13 [History] Multivitamin [Multivitamins] 1 tab PO DAILY 06/07/13 [History] glipiZIDE [Glucotrol] 5 mg PO BID 06/07/13 [History] Metoprolol Tartrate 50 mg PO DAILY 05/12/16 [History] Simvastatin [Zocor] 40 mg PO BEDTIME 05/12/16 [History] Dexamethasone 2 mg PO BEDTIME 04/20/18 [History] levETIRAcetam [Keppra] 500 mg PO BID 04/20/18 [History] Methylphenidate [Ritalin] 20 mg PO BID 04/26/18 [History] NIFEdipine [Procardia XL] 60 mg PO DAILY 04/26/18 [History] Dexamethasone 4 mg PO QAM 07/21/18 [History] Bumetanide [Bumex] 0.5 mg PO Q12H #60 tablet 07/25/18 [Rx] Magnesium 200 mg PO DAILY 08/12/18 [History] Omeprazole 40 mg PO DAILY 08/12/18 [History] Potassium Chloride [Klor-Con 10] 20 meq PO TID 08/12/18 [History] Past Medical History HEENT History: Reports: Hard of Hearing, Impaired Vision Cardiovascular History: Reports: Afib, High Cholesterol, Hypertension Gastrointestinal History: Reports: GERD Genitourinary History: Reports: Renal Disease, Other (See Below) Other Genitourinary History: removal of tumor from a kidney Musculoskeletal History: Reports: Back Pain, Chronic Neurological History: Reports: Other (See Below) Other Neuro History: brain tumor Psychiatric History: Reports: Dementia, Other (See Below) Other Psychiatric History: memory loss Endocrine/Metabolic History: Reports: Diabetes, Type II Oncologic (Cancer) History: Reports: Brain, Other (See Below) Other Oncologic History: left kidney tumor, stage four glioblastoma Dermatologic History: Reports: Cellulitis - Infectious Disease History Infectious Disease History: Reports: None Other Infectious Disease History: port-a-cath - Past Surgical History HEENT Surgical History: Reports: Other (See Below) Other HEENT Surgeries/Procedures: brain biopsy Cardiovascular Surgical History: Reports: None GI Surgical History: Reports: Appendectomy Male Surgical History: Reports: None Endocrine Surgical History: Reports: None Neurological Surgical History: Reports: None Oncologic Surgical History: Reports: Other (See Below) Other Oncologic Surgeries/Procedures: bipsies Social & Family History - Family History Family Medical History: Noncontributory - Caffeine Use Caffeine Use: Reports: Coffee - Living Situation & Occupation Living situation: Reports: , Extended Care Facility Occupation: Retired ED ROS GENERAL - Review of Systems Review Of Systems: Unable To Obtain ED EXAM, GENERAL - Physical Exam Exam: See Below Exam Limited By: Other (Generalized weakness/lethargy, confusion) General Appearance: No Apparent Distress, Lethargic, Other (Chronically ill appearing) Eye Exam: Bilateral Eye: Normal Inspection Nose: Normal Inspection Throat/Mouth: No Airway Compromise Head: Atraumatic, Normocephalic Neck: Normal Inspection, Non-Tender, Full Range of Motion Respiratory/Chest: No Respiratory Distress, No Accessory Muscle Use, Chest Non- Tender, Decreased Breath Sounds, Crackles. No: Rhonchi, Wheezing Cardiovascular: Regular Rate, Rhythm GI/Abdominal: Normal Bowel Sounds, Soft, Non-Tender, No Distention Extremities: Pedal Edema (+3 edema to thighs B/L, also upper extremity edema, anasarca) Neurological: Inattentive, Confused, Disoriented, Slow to Respond, Other ( compression wraps not removed for exam) Skin Exam: Warm, Dry EKG INTERPRETATION EKG Date: 08/12/18 Time: 09:55 Rhythm: Other (SR) Rate (Beats/Min): 66 [place]: LAD-Left [place] Deviation P-Wave: Present QRS: RBBB (and LAFB) ST-T: Normal QT: Normal Comparison: No Change Course - Vital Signs Last Recorded V/S: Last Vital Signs Temp 37.0 C 08/12/18 12:07 Pulse 62 08/12/18 12:07 Resp 20 08/12/18 12:07 BP 150/78 H 08/12/18 12:07 Pulse Ox 96 08/12/18 12:07 - Orders/Labs/Meds Orders: Active Orders 24 hr Category Date Time Status EKG 12 Lead [EKG Documentation Completion] [] STAT Care 08/12/18 10:18 Active Peripheral IV Care [RC] . DIRECTED Care 08/12/18 10:27 Active CULTURE BLOOD [BC] Stat Lab 08/12/18 10:08 Received Sodium Chloride 0.9% [Saline Flush] Med 08/12/18 10:27 Active 10 ml FLUSH ASDIRECTED PRN Peripheral IV Insertion Adult [OM.PC] Stat Oth 08/12/18 10:26 Ordered Medication Orders Sodium Chloride (Saline Flush) 10 ml FLUSH ASDIRECTED PRN PRN Reason: Keep Vein Open Last Admin: 08/12/18 10:15 Dose: 10 ml Labs: Laboratory Tests 08/12/18 08/12/18 08/12/18 Range/Units 10:08 10:08 10:08 WBC 8.0 (5.0-10.0) 10^3/uL RBC 4.01 L (4.6-6.2) 10^6/uL Hgb 12.5 L (14.0-18.0) g/dL Hct 39.4 L (40.0-54.0) % MCV 98.3 D (80-100) fL MCH 31.2 (27.0-34.0) pg MCHC 31.7 L (33.0-35.0) g/dL Plt Count 79 L (150-450) 10^3/uL Neut % (Auto) 85.4 H (42.2-75.2) % Lymph % (Auto) 8.5 L (20.5-50.1) % [place] % (Auto) 5.6 (2-8) % Eos % (Auto) 0.1 L (1.0-3.0) % Baso % (Auto) 0.4 (0.0-1.0) % Add Manual Diff Yes Neutrophils % (Manual) 77 H (42-75) % Band Neutrophils % 5 % Lymphocytes % (Manual) 12 L (20-50) % Monocytes % (Manual) 6 (2-8) % Sodium 149 H D (135-145) mmol/L Potassium 3.6 (3.6-5.0) mmol/L Chloride 113 H (101-111) mmol/L Carbon Dioxide 25.0 (21.0-31.0) mmol/L Anion Gap 14.6 BUN 39 H (7-18) mg/dL Creatinine 1.1 (0.6-1.3) mg/dL Est Cr Clr Drug Dosing TNP Estimated GFR (MDRD) > 60 BUN/Creatinine Ratio 35.45 Glucose 78 (74-105) mg/dL Lactic Acid 0.7 (0.5-2.2) mmol/L Calcium 8.1 L (8.4-10.2) mg/dl Total Bilirubin 0.8 (0.2-1.0) mg/dL AST 29 (10-42) IU/L ALT 55 (10-60) IU/L Alkaline Phosphatase 87 (42-121) IU/L Total Protein 5.1 L (6.7-8.2) g/dl Albumin 2.0 L (3.2-5.5) g/dl Globulin 3.1 Albumin/Globulin Ratio 0.65 Meds: Medications Generic Name Dose Route Start Last Admin Trade Name Freq PRN Reason Stop Dose Admin Sodium Chloride 10 ml 08/12/18 10:27 08/12/18 10:15 Saline Flush FLUSH 10 ml ASDIRECTED PRN Administration Keep Vein Open Discontinued Medications Generic Name Dose Route Start Last Admin Trade Name Freq PRN Reason Stop Dose Admin Furosemide 40 mg 08/12/18 12:01 08/12/18 12:26 Lasix IVPUSH 08/12/18 12:02 40 mg NOW ONE Administration Heparin Sodium (Porcine) 500 units 08/12/18 12:05 Heparin Lock Flush 100 Units/Ml FLUSH 08/12/18 12:06 ASDIRECTED ONE Piperacillin Sod/Tazobactam 100 mls @ 200 mls/hr 08/12/18 11:42 08/12/18 11: 51 Sod 3.375 gm/ Sodium Chloride IV 08/12/18 12:11 200 mls/hr ONETIME ONE Administration - Radiology Interpretation Free Text/Narrative:: CXR: no acute process per Rad. report. - Re-Assessments/Exams Free Text/Narrative Re-Assessment/Exam: 08/12/18 12:[address] Thompson and pt's . Given pt's overall grave condition , the agrees with Dr. Thompson recommendation to return the pt to the [facility] to be cared for there. Dr. Veronica states that she will provide NH orders upon d/c of the pt from the ER, and will keep the informed. Departure - Departure Time of Disposition: 12:33 Disposition: DC/Tfer to [facility] Condition: Poor Clinical Impression: Edema due to hypoalbuminemia, GBM (glioblastoma multiforme) Aspiration pneumonia Qualifiers: Aspiration pneumonia type: unspecified Laterality: unspecified laterality Lung location: unspecified part of lung Qualified Code(s): J69.0 - Pneumonitis due to inhalation of food and vomit - Discharge Information *PRESCRIPTION DRUG MONITORING PROGRAM REVIEWED*: No *COPY OF PRESCRIPTION DRUG MONITORING REPORT IN PATIENT IRMA: No Instructions: Aspiration Pneumonia, Edema Forms: ED Department Discharge Additional Instructions: Return to [facility] Dr. Thompson will provide orders for ongoing care. - My Orders Last 24 Hours: My Active Orders 08/12/18 10:08 CULTURE BLOOD [BC] Stat 08/12/18 10:18 EKG 12 Lead [EKG Documentation Completion] [RC] STAT 08/12/18 10:26 Peripheral IV Insertion Adult [OM.PC] Stat 08/12/18 10:27 Peripheral IV Care [RC] . DIRECTED Sodium Chloride 0.9% [Saline Flush] 10 ml FLUSH ASDIRECTED PRN - Assessment/Plan Last 24 Hours: My Active Orders 08/12/18 10:08 CULTURE BLOOD [BC] Stat 08/12/18 10:18 EKG 12 Lead [EKG Documentation Completion] [RC] STAT 08/12/18 10:26 Peripheral IV Insertion Adult [OM.PC] Stat 08/12/18 10:27 Peripheral IV Care [RC] . DIRECTED Sodium Chloride 0.9% [Saline Flush] 10 ml FLUSH ASDIRECTED PRN
[2018-08-12] MEDS ORDERED: Sodium Chloride 0.9% 10 ML Syringe FLUSH PRN (10:27)
[2018-08-12 10:45] LABS: ANION GAP 14.6; CHLORIDE,CL 113 mmol/L (101-111); SODIUM,NA 149 mmol/L (135-145)
--- NOTE | 2018-08-12 10:52 | CR ---
Clinical history: 73-year-old hypoxic male with cough. Interpretation: External property assessment monitor leads and left supraclavicular central venous chemoinfusion catheter which crosses the midline, down the superior vena cava into the right atrium as noted on film to March 2018. Respiratory motion and generally poor inspiratory effort crowds lung markings in the bases. No new signs of heart failure i.e. no alveolar edema or dependent effusion since March 2018. No new lung mass, hilar lymphadenopathy or focal lobar pneumonia. No pneumothorax. CONCLUSION: Differences in technique and inspiratory effort. No new cardiopulmonary abnormality since March 2018.
[2018-08-12] MEDS ORDERED: Piperacillin/Tazobactam 3.375 GM in Sodium Chloride 0.9% 100 ML IV ONE (11:42)
[2018-08-12] MEDS ORDERED: Furosemide 40 MG/4 ML VIAL IVPUSH ONE (12:01)
[2018-08-12 12:07] VITALS: BP 150/78
== END 2018-08-12 12:50 ==
LOC: DL.ED 09:49
DX: J69.0 Pneumonitis due to inhalation of food and vomit (principal); C71.9 Malignant neoplasm of brain, unspecified; E88.09 Other disorders of plasma-protein metabolism, not elsewhere classified; R60.9 Edema, unspecified; I10 Essential (primary) hypertension; E11.9 Type 2 diabetes mellitus without complications; Z79.82 Long term (current) use of aspirin; Z79.899 Other long term (current) drug therapy
CPT/HCPCS: 36415; 71045; 80053; 83605; 85025; 87040; 93005; 96365; 96375; 99284; J1642; J1940; J2543; J7050

== ENCOUNTER 2018-08-21 01:52 | Inpatient (IN) | payer MEDICARE, BC ==
--- NOTE | 2018-08-21 01:56 | EDM.PDOC ---
ED HPI GENERAL MEDICAL PROBLEM - General Chief Complaint: Respiratory Problem Stated Complaint: AMBULANCE-LOW O2 STATS Time Seen by Provider: 08/21/18 01:51 Source of Information: Reports: EMS, Correction Records History Limitations: Reports: Other - History of Present Illness INITIAL COMMENTS - FREE TEXT/NARRATIVE: sent from [place] for low BP & O2 sat, was recently d/c from [facility] - Related Data Allergies Allergy/AdvReac Type Severity Reaction Status Date / Time No Known Allergies Allergy Verified 07/21/18 17:20 Home Meds: Home Meds Acetaminophen [Tylenol] 650 mg PO Q4HR PRN 08/21/18 [History] Aspirin [Halfprin] 81 mg PO DAILY 08/21/18 [History] Benazepril HCl [Lotensin] 10 mg PO BID 08/21/18 [History] Dexamethasone 1 mg PO DAILY 08/21/18 [History] Dexamethasone 2 mg PO DAILY 08/21/18 [History] Glimepiride [Amaryl] 1 mg PO WITHBREAKFAST 08/21/18 [History] Insulin Aspart [NovoLOG] See Protocol SQ WITHMEALSANDBED 08/21/18 [History] Insulin Glarg,Human.Rec.Analog [Lantus] 10 unit SUBCUT BEDTIME 08/21/18 [History ] LORazepam 2 mg PO ASDIRECTED 08/21/18 [History] LORazepam [Ativan] 2 mg IM ASDIRECTED 08/21/18 [History] Methylphenidate HCl 20 mg PO BID 08/21/18 [History] Multivitamin with Minerals [Multiple Vitamin] 1 tab PO DAILY 08/21/18 [History] Omeprazole 40 mg PO ACBREAKFAST 08/21/18 [History] amLODIPine Besylate [Amlodipine Besylate] 5 mg PO DAILY 08/21/18 [History] levETIRAcetam [Keppra] 500 mg PO DAILY 08/21/18 [History] Past Medical History HEENT History: Reports: Hard of Hearing, Impaired Vision Cardiovascular History: Reports: Afib, High Cholesterol, Hypertension Gastrointestinal History: Reports: GERD Genitourinary History: Reports: Renal Disease, Other (See Below) Other Genitourinary History: removal of tumor from a kidney Musculoskeletal History: Reports: Back Pain, Chronic Neurological History: Reports: Other (See Below) Other Neuro History: brain tumor Psychiatric History: Reports: Dementia, Other (See Below) Other Psychiatric History: memory loss Endocrine/Metabolic History: Reports: Diabetes, Type II Oncologic (Cancer) History: Reports: Brain, Other (See Below) Other Oncologic History: left kidney tumor, stage four glioblastoma Dermatologic History: Reports: Cellulitis - Infectious Disease History Infectious Disease History: Reports: None Other Infectious Disease History: port-a-cath - Past Surgical History HEENT Surgical History: Reports: Other (See Below) Other HEENT Surgeries/Procedures: brain biopsy Cardiovascular Surgical History: Reports: None GI Surgical History: Reports: Appendectomy Male Surgical History: Reports: None Endocrine Surgical History: Reports: None Neurological Surgical History: Reports: None Oncologic Surgical History: Reports: Other (See Below) Other Oncologic Surgeries/Procedures: bipsies Social & Family History - Family History Family Medical History: Noncontributory - Caffeine Use Caffeine Use: Reports: Coffee - Living Situation & Occupation Living situation: Reports: , Extended Care Facility Occupation: Retired ED ROS GENERAL - Review of Systems Review Of Systems: ROS reveals no pertinent complaints other than HPI. ED EXAM, GENERAL - Physical Exam Exam: See Below Exam Limited By: No Limitations General Appearance: Lethargic, Other (arousable) Ears: Hearing Grossly Normal Throat/Mouth: Normal Voice, No Airway Compromise Head: Atraumatic Neck: Non-Tender, Full Range of Motion Respiratory/Chest: Rales, Rhonchi, Wheezing Cardiovascular: Regular Rate, Rhythm GI/Abdominal: Soft, Non-Tender Extremities: Pedal Edema, Other (4+ bilateral) Neurological: Other (somnolent) Lymphatic: No Adenopathy Course - Vital Signs Text/Narrative:: discussed with Dr Benitez who kindly admitted tp Last Recorded V/S: Last Vital Signs Temp 36.7 C 08/21/18 20:00 Pulse 94 08/21/18 20:00 Resp 22 H 08/21/18 20:00 BP 130/75 08/21/18 20:00 Pulse Ox 88 L 08/21/18 20:00 - Orders/Labs/Meds Orders: Active Orders 24 hr Category Date Time Status Gonzalez Catheter Insertion [Insert Urinary Catheter] [OM. Care 08/21/18 02:00 Ordered PC] Q24H Urinary Catheter Assessment [RC] 08,20 Care 08/21/18 01:49 Active CULTURE BLOOD [BC] Routine Lab 08/21/18 02:00 Received Piperacillin/Tazobactam [Zosyn] 3.375 gm Med 08/21/18 13:00 Active Sodium Chloride 0.9% [Normal Saline] 100 ml IV Q8H Medication Orders Acetaminophen (Tylenol) 650 mg PO Q4H PRN PRN Reason: Pain (Mild 1-3)/fever Acetaminophen (Tylenol) 650 mg RECTAL Q4H PRN PRN Reason: Pain/Fever Last Admin: 08/21/18 16:29 Dose: 650 mg Aspirin (Halfprin) 81 mg PO DAILY [facility] Last Admin: 08/21/18 10:39 Dose: Dexamethasone (Dexamethasone) 2 mg IVPUSH Q12H [facility] Last Admin: 08/21/18 18:15 Dose: 2 mg Admin: 08/21/18 07:49 Dose: 2 mg Dextrose/Water (Dextrose 50% In Water) 50 ml IVPUSH ONETIME PRN PRN Reason: Hypoglycemia Last Admin: 08/21/18 08:34 Dose: 50 ml Docusate Sodium (Colace) 100 mg PO BID PRN PRN Reason: Constipation Enoxaparin Sodium (Lovenox) 40 mg SUBCUT DAILY [facility] Last Admin: 08/21/18 10:38 Dose: 40 mg Furosemide (Lasix) 20 mg IVPUSH BIDDIURETIC [facility] Last Admin: 08/21/18 14:46 Dose: 20 mg Admin: 08/21/18 07:53 Dose: 20 mg Piperacillin Sod/Tazobactam (Sod 3.375 gm/ Sodium Chloride) 100 mls @ 200 mls/ hr IV Q8H [facility] Last Infusion: 08/21/18 16:41 Dose: 100 mls/hr Admin: 08/21/18 13:18 Dose: 200 mls/hr Levetiracetam 500 mg/ Sodium (Chloride) 105 mls @ 400 mls/hr IV DAILY [facility] Last Admin: 08/21/18 17:23 Dose: 400 mls/hr Dextrose/Sodium Chloride (Dextrose 5%-Normal Saline) 1,000 mls @ 50 mls/hr IV ASDIRECTED [facility] Last Admin: 08/21/18 19:56 Dose: 50 mls/hr Insulin Human Lispro (Humalog) 0 unit SUBCUT QIDACANDBED [facility]; Protocol Last Admin: 08/21/18 21:00 Dose: Admin: 08/21/18 17:04 Dose: Not Given Admin: 08/21/18 12:28 Dose: Not Given Admin: 08/21/18 08:25 Dose: Not Given Magnesium Hydroxide (Milk Of Magnesia) 30 ml PO Q12H PRN PRN Reason: Constipation Morphine Sulfate (Morphine) 1 mg IVPUSH Q2H PRN PRN Reason: Pain Multivitamins/Minerals (Vitamins And Minerals) 1 tab PO DAILY [facility] Last Admin: 08/21/18 10:40 Dose: Methylphenidate 10 (Mg Tab Own Med) 0 mg PO BID@0800,1700 [facility] Last Admin: 08/21/18 17:54 Dose: Ondansetron HCl (Zofran) 4 mg IVPUSH Q4H PRN PRN Reason: Nausea/Vomiting Pantoprazole Sodium (Protonix Iv) 40 mg IVPUSH DAILY [facility] Last Admin: 08/21/18 16:35 Dose: 40 mg Polyethylene Glycol (Miralax) 17 gm PO DAILY PRN PRN Reason: Constipation Labs: Laboratory Tests 08/21/18 08/21/18 08/21/18 Range/Units 02:00 02:00 02:00 WBC 14.9 H (5.0-10.0) 10^3/uL RBC 4.46 L (4.6-6.2) 10^6/uL Hgb 13.8 L (14.0-18.0) g/dL Hct 42.3 (40.0-54.0) % MCV 94.8 D (80-100) fL MCH 30.9 (27.0-34.0) pg MCHC 32.6 L (33.0-35.0) g/dL Plt Count 139 L (150-450) 10^3/uL Neut % (Auto) 89.0 H (42.2-75.2) % Lymph % (Auto) 7.3 L (20.5-50.1) % Dupage % (Auto) 3.4 (2-8) % Eos % (Auto) 0.2 L (1.0-3.0) % Baso % (Auto) 0.1 (0.0-1.0) % Add Manual Diff Yes Neutrophils % (Manual) 51 (42-75) % Band Neutrophils % 33 % Lymphocytes % (Manual) 9 L (20-50) % Atypical Lymphs % 0 % Monocytes % (Manual) 5 (2-8) % Eosinophils % (Manual) 2 (1-3) % Basophils % (Manual) 0 Toxic Granulation 1+ slight Sodium 142 (135-145) mmol/L Potassium 3.6 (3.6-5.0) mmol/L Chloride 113 H (101-111) mmol/L Carbon Dioxide 18.0 L (21.0-31.0) mmol/L Anion Gap 14.6 BUN 36 H (7-18) mg/dL Creatinine 1.3 (0.6-1.3) mg/dL Est Cr Clr Drug Dosing TNP Estimated GFR (MDRD) 54 BUN/Creatinine Ratio 27.69 Glucose 87 (74-105) mg/dL Lactic Acid 2.8 H (0.5-2.2) mmol/L Calcium 7.8 L (8.4-10.2) mg/dl Total Bilirubin 0.9 (0.2-1.0) mg/dL AST 33 (10-42) IU/L ALT 41 (10-60) IU/L Alkaline Phosphatase 103 (42-121) IU/L Troponin I 0.08 H* (0.00-0.02) ng/ml B-Natriuretic Peptide 81 (0-100) pg/ml Total Protein 5.3 L (6.7-8.2) g/dl Albumin 2.0 L (3.2-5.5) g/dl Globulin 3.3 Albumin/Globulin Ratio 0.61 Meds: Medications Generic Name Dose Route Start Last Admin Trade Name Freq PRN Reason Stop Dose Admin Acetaminophen 650 mg 08/21/18 06:10 Tylenol PO Q4H PRN Pain (Mild 1-3)/fever Acetaminophen 650 mg 08/21/18 15:57 08/21/18 16:29 Tylenol RECTAL 650 mg Q4H PRN Administration Pain/Fever Aspirin 81 mg 08/21/18 09:00 08/21/18 10:39 Halfprin PO Not Given DAILY [facility] Dexamethasone 2 mg 08/21/18 06:30 08/21/18 18:15 Dexamethasone IVPUSH 2 mg Q12H [facility] Administration Dextrose/Water 50 ml 08/21/18 06:19 08/21/18 08:34 Dextrose 50% In Water IVPUSH 50 ml ONETIME PRN Administration Hypoglycemia Docusate Sodium 100 mg 08/21/18 06:10 Colace PO BID PRN Constipation Enoxaparin Sodium 40 mg 08/21/18 09:00 08/21/18 10:38 Lovenox SUBCUT 40 mg DAILY [facility] Administration Furosemide 20 mg 08/21/18 08:00 08/21/18 14:46 Lasix IVPUSH 20 mg BIDDIURETIC [facility] Administration Piperacillin Sod/Tazobactam 100 mls @ 200 mls/hr 08/21/18 13:00 08/21/18 16: 41 Sod 3.375 gm/ Sodium Chloride IV Infused Q8H [facility] Infusion Levetiracetam 500 mg/ Sodium 105 mls @ 400 mls/hr 08/21/18 16:30 08/21/18 17: 23 Chloride IV 400 mls/hr DAILY [facility] Administration Dextrose/Sodium Chloride 1,000 mls @ 50 mls/hr 08/21/18 19:30 08/21/18 19:56 Dextrose 5%-Normal Saline IV 50 mls/hr ASDIRECTED [facility] Administration Insulin Human Lispro 0 unit 08/21/18 07:00 08/21/18 21:00 Humalog SUBCUT Not Given QIDACANDBED [facility] Protocol Magnesium Hydroxide 30 ml 08/21/18 06:10 Milk Of Magnesia PO Q12H PRN Constipation Morphine Sulfate 1 mg 08/21/18 08:35 Morphine IVPUSH Q2H PRN Pain Multivitamins/Minerals 1 tab 08/21/18 09:00 08/21/18 10:40 Vitamins And Minerals PO Not Given DAILY [facility] Methylphenidate 10 0 mg 08/21/18 18:00 08/21/18 17:54 Mg Tab Own Med PO Not Given BID@0800,1700 [facility] Ondansetron HCl 4 mg 08/21/18 06:10 Zofran IVPUSH Q4H PRN Nausea/Vomiting Pantoprazole Sodium 40 mg 08/21/18 16:30 08/21/18 16:35 Protonix Iv IVPUSH 40 mg DAILY [facility] Administration Polyethylene Glycol 17 gm 08/21/18 06:10 Miralax PO DAILY PRN Constipation Discontinued Medications Generic Name Dose Route Start Last Admin Trade Name Freq PRN Reason Stop Dose Admin Furosemide 20 mg 08/21/18 02:00 08/21/18 02:12 Lasix IVPUSH 08/21/18 02:01 20 mg ONETIME ONE Administration Glimepiride 1 mg 08/21/18 08:00 08/21/18 08:27 Amaryl PO Not Given WITHBREAKFAST [facility] Piperacillin Sod/Tazobactam 100 mls @ 200 mls/hr 08/21/18 05:00 08/21/18 05: 08 Sod 3.375 gm/ Sodium Chloride IV 08/21/18 05:29 100 mls/hr ONETIME ONE Administration Sodium Chloride 1,000 mls @ 50 mls/hr 08/21/18 06:15 08/21/18 07:43 Normal Saline IV 50 mls/hr ASDIRECTED [facility] Administration Albumin Human 12.5 gm in 50 mls @ 100 mls/hr 08/21/18 06:16 08/21/18 08:01 Flexbumin 25% IV 08/21/18 06:45 50 mls/hr ONETIME ONE Administration Levetiracetam 500 mg/ Sodium 105 mls @ 400 mls/hr 08/22/18 09:00 Chloride IV DAILY [facility] Insulin Glargine 10 unit 08/21/18 21:00 Lantus SUBCUT BEDTIME [facility] Levetiracetam 500 mg 08/21/18 09:00 08/21/18 10:39 Keppra PO Not Given DAILY [facility] Morphine Sulfate 2 mg 08/21/18 02:05 08/21/18 02:12 Morphine IVPUSH 08/21/18 02:06 2 mg ONETIME ONE Administration Omeprazole 40 mg 08/22/18 06:00 Omeprazole PO ACBREAKFAST [facility] Departure - Departure Time of Disposition: 04:18 Disposition: Admitted As Inpatient 65 Condition: Poor Clinical Impression: Pneumonia Qualifiers: Pneumonia type: due to unspecified organism Laterality: bilateral Lung location : lower lobe of lung Qualified Code(s): J18.1 - Lobar pneumonia, unspecified organism - Discharge Information - My Orders Last 24 Hours: My Active Orders 08/21/18 01:49 Urinary Catheter Assessment [RC] 08/21/18 02:00 Gonzalez Catheter Insertion [Insert Urinary Catheter] [OM.PC] Q24H CULTURE BLOOD [BC] Routine - Assessment/Plan Last 24 Hours: My Active Orders 08/21/18 01:49 Urinary Catheter Assessment [RC] 08/21/18 02:00 Gonzalez Catheter Insertion [Insert Urinary Catheter] [OM.PC] Q24H CULTURE BLOOD [BC] Routine
[2018-08-21] MEDS ORDERED: Furosemide 20 MG/2 ML VIAL IVPUSH ONE (02:00)
[2018-08-21] MEDS ORDERED: Morphine 2 MG/ML Syringe IVPUSH ONE (02:05)
[2018-08-21 02:32] LABS: ANION GAP 14.6; CHLORIDE,CL 113 mmol/L (101-111); SODIUM,NA 142 mmol/L (135-145)
[2018-08-21] MEDS ORDERED: Piperacillin/Tazobactam 3.375 GM in Sodium Chloride 0.9% 100 ML IV ONE (05:00)
[2018-08-21] MEDS ORDERED: Magnesium Hydroxide 400 MG/5 ML Susp 30 ML Cup PO PRN (06:10)
[2018-08-21] MEDS ORDERED: Acetaminophen 325 MG Tab PO PRN (06:10)
[2018-08-21] MEDS ORDERED: Polyethylene Glycol 3350 Powder 17 GM Packet PO PRN (06:10)
[2018-08-21] MEDS ORDERED: Docusate Sodium 100 MG Cap PO PRN (06:10)
[2018-08-21] MEDS ORDERED: Ondansetron 4 MG/2 ML SDV IVPUSH PRN (06:10)
[2018-08-21] MEDS ORDERED: Sodium Chloride 0.9% 1,000 ML IV SCH (06:15)
[2018-08-21] MEDS ORDERED: 50% Dextrose in Water 50 ML Syringe IVPUSH PRN (06:19)
[2018-08-21] MEDS: Dexamethasone 4 MG/ML SDV IVPUSH SCH ×2 (07:49→18:15)
[2018-08-21] MEDS: Furosemide 20 MG/2 ML VIAL IVPUSH SCH ×2 (07:53→14:46)
[2018-08-21] MEDS: Albumin 25% 12.5 GM/50 ML BAG IV ONE ×2 (07:58→08:01)
[2018-08-21] MEDS ORDERED: Glimepiride 2 MG Tab PO SCH (08:00)
[2018-08-21] MEDS: Insulin Lispro 100 Units/ML 3 ML Vial SUBCUT SCH ×4 (08:25→21:00)
[2018-08-21] MEDS ORDERED: Morphine 2 MG/ML Syringe IVPUSH PRN (08:35)
[2018-08-21] MEDS ORDERED: levETIRAcetam 500 MG Tab PO SCH (09:00)
[2018-08-21] MEDS: Enoxaparin 40 MG/0.4 ML Syringe SUBCUT SCH (10:38)
[2018-08-21] MEDS: Aspirin 81 MG Tab.EC PO SCH (10:39)
[2018-08-21] MEDS: Multivitamins, Therapeutic with Minerals Tab PO SCH (10:40)
--- NOTE | 2018-08-21 12:41 | HP ---
CHIEF COMPLAINT: Increased confusion. HISTORY OF PRESENTING ILLNESS: Mr. Jad Saucedo is a 73-year-old male with a medical history significant for hypertension, hyperlipidemia, type 2 diabetes mellitus, history of glioblastoma multiforme, history of nephrotic- range proteinuria, generalized anasarca, recently admitted to [facility] and got discharged after he was noted to be severely dehydrated with acute hypernatremia and got discharged back to the long-term. While at the long-term, he has been noted to have very low oxygen, he was very hypoxic and so was brought to the ER where he was noted to have possible pneumonia requiring admission to the hospital. At this time, the patient is very acutely encephalopathic. He is unable to respond to commands. He is very drowsy and so most of the history is obtained from his , who is at the bedside. As per his , upon discharge from [facility], he has been back to his baseline function where he was very communicative and was able to feed by himself, but in the last 1 day, the patient has declined. He did not have any fevers or chills while at the long-term. No complaints of nausea, vomiting, or diarrhea. The patient did not complain of any chest pains or shortness of breath while at the long-term. No further history could be obtained from this patient, who is very encephalopathic. REVIEW OF SYSTEMS: Could not be obtained from this patient. PAST MEDICAL HISTORY: From the chart suggests hypertension, type 2 diabetes mellitus, hyperlipidemia, chronic kidney disease, glioblastoma multiforme, nephrotic-range proteinuria. PAST SURGICAL HISTORY: As per the chart suggests closed brain biopsy, laparoscopic kidney cryoablation, upper GI scopes. FAMILY HISTORY: None. SOCIAL HISTORY: The patient had history of smoking tobacco, quit in 1986. No history of alcohol intake. ALLERGIES: No known drug allergies. HOME MEDICATIONS: 1. Lorazepam 2 mg as needed. 2. NovoLog as needed with supplemental scale. 3. Lantus 10 units at bedtime. 4. Tylenol 650 every 4 hours. 5. Methylphenidate 20 mg twice a day. 6. Benazepril 10 mg twice a day. 7. Omeprazole 40 mg with breakfast. 8. Keppra 500 mg daily. 9. Amaryl 1 mg with breakfast. 10.Dexamethasone 1 mg. 11.Aspirin 81 mg daily. 12.Norvasc 5 mg daily. PHYSICAL EXAMINATION: Vital Signs: Temperature of 99.1, pulse of 112, blood pressure of 105/52, respiratory rate of 30, saturating at 76% on 2 L of oxygen. General Appearance: The patient is a lethargic, confused, not responding to commands, response to painful stimuli. Cardiovascular System: S1 and S2 heard with normal intensity. Respiratory System: Clear to auscultation bilaterally except for mild crepitations at the base. No wheeze. Abdomen: Soft. Bowel sounds positive. Nontender. No rigidity. Extremities: 3+ pitting edema noted in all 4 extremities, more so on the left upper extremity. Left upper extremity feels cold to touch and pulses could not be felt very well. Neurology: A complete neurology exam could not be completed as the patient is not able to follow commands. LABORATORY DATA: WBC 14.9, hemoglobin 13.8, hematocrit 42.3, platelet count 139. Sodium 142, potassium 3.6, chloride 113, bicarb 18, BUN 36, creatinine 1.3, glucose 87, lactic acid 2.8, calcium 7.8. Troponin 0.08. Albumin 2, total protein 5.3. BNP 81. ASSESSMENT: 1. Acute encephalopathy. 2. Acute hypoxic respiratory failure. 3. Pneumonia with pneumonitis. 4. Metabolic acidosis. 5. Nephrotic-range proteinuria. 6. Hypertension. 7. Type 2 diabetes mellitus. 8. Lactic acidosis. 9. Elevated troponin. 10.History of glioblastoma multiforme. 11.Generalized anasarca. PLAN: 1. Pneumonia. The patient is noted to have possible pneumonia versus pneumonitis on the x-ray of the chest. Given his recent hospitalization, one has to think of possible gram-negative pneumonia. We will start him on broad-spectrum antibiotic and Zosyn, and we will closely follow. We will also add vancomycin. We will obtain blood cultures and sputum cultures and follow the culture reports. 2. Sepsis. The patient is noted to have leukocytosis, tachycardia, tachypnea, and lactic acidosis consistent with sepsis. We will follow serial lactic acid level and we will continue broad-spectrum antibiotics. 3. Metabolic acidosis. This could be resulting from underlying sepsis also. We will closely follow. 4. Hypertension. The patient appears to be hypotensive with tachycardia. He might be intravascularly depleted, though he has 3+ edema to the lower extremities, this could be resulting from nephrotic-range proteinuria with third spacing. We will give 1 bag of 25% albumin along with IV normal saline at 75 mL/h with gentle hydration. He is also noted to have lower BNP. We will closely follow. He could possibly be intravascularly depleted. The patient's blood pressure seems to be on the lower side. We will hold the Norvasc for now. Resume it once he is more stable. 5. Generalized anasarca. He was being on Lasix. We will continue the low- dose Lasix to prevent any worsening of his generalized anasarca. 6. Type 2 diabetes mellitus. He is noted to be on insulin regimen. Continue the same. Check his fingersticks with each meals. Have him on supplemental scale insulin as needed for additional coverage of his blood glucose. 7. DVT prophylaxis. We will have him on Lovenox for DVT prophylaxis. 8. Code status. The patient will be DNR/DNI as per his 's wishes. 9. Discussed with Dr. Higginbotham, ER physician, regarding the plan of care. Reviewed the labs and medications. Reviewed the old charts. [facility] /[id number] HILDA
[2018-08-21] MEDS: Piperacillin/Tazobactam 3.375 GM in Sodium Chloride 0.9% 100 ML IV SCH ×2 (13:18→21:17)
[2018-08-21] MEDS: Acetaminophen 650 MG Supp RECTAL PRN (16:29)
[2018-08-21] MEDS: Pantoprazole 40 MG Vial IVPUSH SCH (16:35)
[2018-08-21] MEDS: levETIRAcetam 500 MG in Sodium Chloride 0.9% 100 ML IV SCH (17:23)
[2018-08-21] MEDS: METHYLPHENIDATE 10 MG PO SCH (17:54)
[2018-08-21] MEDS ORDERED: Dextrose 5%-0.9% NaCl 1,000 ML IV SCH (19:30)
[2018-08-21] MEDS ORDERED: Insulin Glarg,Human.Rec.Analog 100 Unit/ML SUBCUT SCH (21:00)
[2018-08-22] MEDS: Piperacillin/Tazobactam 3.375 GM in Sodium Chloride 0.9% 100 ML IV SCH ×4 (05:23→22:29)
[2018-08-22] MEDS ORDERED: Omeprazole 20 MG Cap.CR PO SCH (06:00)
[2018-08-22] MEDS: Dexamethasone 4 MG/ML SDV IVPUSH SCH ×2 (06:33→18:30)
[2018-08-22 07:12] LABS: ANION GAP 13.3
[2018-08-22] MEDS: Insulin Lispro 100 Units/ML 3 ML Vial SUBCUT SCH ×4 (07:46→21:15)
[2018-08-22] MEDS: Furosemide 20 MG/2 ML VIAL IVPUSH SCH (08:33)
[2018-08-22] MEDS: Enoxaparin 40 MG/0.4 ML Syringe SUBCUT SCH (08:36)
[2018-08-22] MEDS: Pantoprazole 40 MG Vial IVPUSH SCH (08:36)
[2018-08-22] MEDS: METHYLPHENIDATE 10 MG PO SCH ×2 (08:42→17:18)
[2018-08-22] MEDS ORDERED: levETIRAcetam 500 MG in Sodium Chloride 0.9% 100 ML IV SCH (09:00)
[2018-08-22] MEDS: levETIRAcetam 500 MG in Sodium Chloride 0.9% 100 ML IV SCH (09:32)
[2018-08-22] MEDS: Aspirin 81 MG Tab.EC PO SCH (09:56)
[2018-08-22] MEDS: Multivitamins, Therapeutic with Minerals Tab PO SCH (09:57)
[2018-08-22] MEDS ORDERED: Dextrose 5% in Water 1,000 ML IV SCH (11:30)
--- NOTE | 2018-08-22 15:16 | PN ---
DATE: 08/22/2018 SUBJECTIVE: Mr. Jad Patino is a 73-year-old male with medical history significant for hypertension, hyperlipidemia, type 2 diabetes mellitus, glioblastoma multiforme in the past, and nephritic range proteinuria with generalized anasarca, frequent hospitalizations, admitted to the hospital now with complaints of hypoxia noted to have underlying pneumonia. For the last 24 hours, the patient is still very noncommunicative, still confused, but appears to be more awake and alert at times. No further history could be obtained at this point from the patient. Discussed with family members at bedside. REVIEW OF SYSTEMS: A complete review of systems could not be obtained from this patient. PHYSICAL EXAMINATION: Vital Signs: Temperature of 98.5, pulse of 83, blood pressure 146/70, respiratory rate of 20, saturating at 94% on 3.5 L of oxygen. General Appearance: The patient is easily arousable but noncommunicative. Cardiovascular System: S1 and S2 heard with normal intensity. No gallops. Respiratory System: Clear to auscultation bilaterally except for mild crepitations at the bases. No wheeze. Abdomen: Soft. Bowel sounds positive. Nontender. No rigidity. Extremities: 3+ edema noted bilateral lower extremities and also increased swelling to the left upper extremity. MEDICATIONS: Reviewed. Continue with: 1. Tylenol 650 every 4 hours as needed for pain. 2. Aspirin 81 mg daily. 3. Dexamethasone 2 mg IV every 12 hours. 4. Lovenox 40 mg subcutaneous daily. 5. Lasix 20 mg IV daily. 6. Keppra 500 mg IV daily. 7. Morphine 1 mg IV every 2 hours as needed for pain. 8. Methylphenidate 10 mg tablet. 9. Zosyn IV q.8 hourly. LABORATORY DATA: Labs reviewed. 1. WBC 6.7, hemoglobin 10.1, hematocrit 31.7, platelet count 79. 2. Sodium 146, potassium 3.3, chloride 116, bicarb 20, BUN 38, creatinine 1.3, glucose 99. ASSESSMENT: 1. Acute hypernatremia. 2. Pneumonia, possible gram-negative pneumonia. 3. Acute encephalopathy. 4. Acute hypoxic respiratory failure. 5. Metabolic acidosis. 6. Nephrotic range proteinuria. 7. Generalized anasarca. 8. Hypertension. 9. Type 2 diabetes mellitus. 10.Lactic acidosis, resolved. 11.Elevated troponin, stable. 12.History of glioblastoma multiforme. PLAN: 1. Pneumonia. The patient was admitted with pneumonia leading to acute hypoxic respiratory failure, possible Gram-negative pneumonia given his recent hospitalization. Discharge on IV antibiotics, Zosyn. His leukocytosis has resolved, he remains afebrile. Continue Zosyn for now. 2. Sepsis, much improved. His leukocytosis has resolved. His tachycardia and tachypnea have improved and leukocytosis improved. Continue with current antibiotic, Zosyn. 3. Metabolic acidosis. This is mainly from his sepsis, which seems to be resolved. 4. Generalized anasarca. Continues to have generalized anasarca. This is mainly from his nephrotic range proteinuria. The patient was evaluated by Nephrology, Dr. Sinha, as an outpatient in the past. 5. Type 2 diabetes mellitus. The patient often has low blood sugars mainly from poor oral intake. We will have him on D5. 6. Hypernatremia. This is mainly from poor oral intake. His sodium has increased to 146. We will switch IV fluids to D5W at 50 mL/h, check his sodium every 4 hourly, and we will closely follow. The patient is encouraged to have good oral intake. 7. Skin tears. The patient is noted to have multiple skin tears. This is mainly from the edema, and we will have wound care consultation. 8. Overall prognosis looks guarded in this gentleman with frequent hospitalization and decreased functional status. Discussed with family members regarding comfort cares. His is going to speak with their kids, mainly 1 daughter and 2 sons, who are out of town for now. We will follow with the family and closely follow. [facility] /[id number]
[2018-08-22] MEDS ORDERED: Furosemide 40 MG/4 ML VIAL IVPUSH ONE (20:00)
[2018-08-23] MEDS: Piperacillin/Tazobactam 3.375 GM in Sodium Chloride 0.9% 100 ML IV SCH (05:53)
[2018-08-23] MEDS: Dexamethasone 4 MG/ML SDV IVPUSH SCH (05:53)
[2018-08-23 07:28] LABS: ANION GAP 15.4
[2018-08-23] MEDS: Insulin Lispro 100 Units/ML 3 ML Vial SUBCUT SCH ×2 (08:08→12:41)
[2018-08-23] MEDS: Enoxaparin 40 MG/0.4 ML Syringe SUBCUT SCH (08:15)
[2018-08-23] MEDS: Pantoprazole 40 MG Vial IVPUSH SCH (08:15)
[2018-08-23] MEDS ORDERED: Furosemide 20 MG/2 ML VIAL IVPUSH SCH (09:00)
[2018-08-23] MEDS: METHYLPHENIDATE 10 MG PO SCH (09:03)
[2018-08-23] MEDS: Aspirin 81 MG Tab.EC PO SCH (09:04)
[2018-08-23] MEDS: levETIRAcetam 500 MG in Sodium Chloride 0.9% 100 ML IV SCH ×2 (09:04→09:25)
[2018-08-23] MEDS: Multivitamins, Therapeutic with Minerals Tab PO SCH (09:04)
[2018-08-23 11:49] VITALS: BP 143/77; PULSE 81
[2018-08-23] MEDS ORDERED: Ondansetron 4 MG/2 ML SDV IVPUSH PRN (12:04)
[2018-08-23] MEDS: Morphine 2 MG/ML Syringe IVPUSH PRN ×2 (12:25→19:51)
--- NOTE | 2018-08-23 14:07 | PN ---
DATE: 08/23/2018 HISTORY OF PRESENT ILLNESS: Mr. Lewis Street is a 73-year-old male with a medical history significant for hypertension, hyperlipidemia, type 2 diabetes mellitus, glioblastoma multiforme in the past, nephrotic range proteinuria with generalized anasarca, frequent hospitalization, admitted to the hospital with pneumonia, sepsis, hypoxic respiratory failure. For the last 24 hours, the patient's condition deteriorated. Overnight, he became more hypoxic, requiring around 15 L of non-rebreather mask oxygen. He is more encephalopathic and not completely oriented. He is not able to follow any commands. REVIEW OF SYSTEMS: Difficult to obtain from this patient with altered mental status. PHYSICAL EXAMINATION: Vitals: Temperature of 99.9, pulse of 81, blood pressure 143/77, respiratory rate of 22, saturating at 95% on 15 L of oxygen. General Appearance: The patient is nonverbal, noncommunicative, responds to painful stimuli. He is able to extend his arms, but does not follow any commands. Cardiovascular System: S1, S2 heard with normal intensity. Tachycardic. Respiratory System: Bilateral crepitations noted, coarse. Abdomen: Soft. Bowel sounds positive. Nontender. No rigidity. Extremities: 2 to 3+ edema noted, bilateral extremities. MEDICATIONS: The patient is made end-of-life care as per family member wishes. He will continue with comfort care treatments including morphine, Ativan, atropine, Tylenol. LABORATORY DATA: WBC 6, hemoglobin 10.2, hematocrit 32.5, platelet count 85. Sodium 146, potassium 3.4, chloride 113, bicarb 21, BUN 35, creatinine 1.4, glucose 150. Magnesium 1.5. ASSESSMENT: 1. End-of-life cares with imminent on this admission. 2. Acute hypoxic respiratory failure. 3. Pneumonia. 4. Sepsis. 5. Elevated troponins with possible type 2 myocardial infarction with underlying sepsis with demand ischemia. 6. Acute encephalopathy. 7. Nephrotic range proteinuria. 8. Generalized anasarca. 9. Hypertension. 10.Type 2 diabetes mellitus. 11.Lactic acidosis, resolved. 12.History of glioblastoma multiforme. PLAN: Overall prognosis looks guarded in this gentleman with acute respiratory failure with underlying pneumonia, sepsis, and elevated troponin with type 2 myocardial infarction from demand ischemia with underlying sepsis. The patient is deteriorating fast. His is imminent at this time. He will be made comfort cares and palliative care treatment protocol will be ordered at this time. We will continue with Ativan, morphine, and atropine as needed. Discussed treatment goals and options with the patient's family members at bedside, who are in agreement with end-of-life cares as is imminent at this time. We will respect family members' wishes, and we will closely follow. We will consult hospice cares. [facility] /[id number]
[2018-08-23] MEDS: Atropine 1% Ophth Soln 5 ML BOTTLE SL PRN (18:29)
[2018-08-23] MEDS: Acetaminophen 650 MG Supp RECTAL PRN (20:20)
[2018-08-24] MEDS: Atropine 1% Ophth Soln 5 ML BOTTLE SL PRN ×2 (03:56→15:59)
[2018-08-24] MEDS: Morphine 2 MG/ML Syringe IVPUSH PRN ×5 (04:17→17:58)
[2018-08-24] MEDS: Multivitamins, Therapeutic with Minerals Tab PO SCH (09:51)
[2018-08-24] MEDS: LORazepam 2 MG/ML Syringe IVPUSH PRN ×3 (11:53→17:58)
--- NOTE | 2018-08-24 13:55 | PN ---
DATE: 08/24/[address] is a 73-year-old male with a medical history significant for hypertension, hyperlipidemia, type 2 diabetes mellitus, glioblastoma multiforme in the past, nephrotic range proteinuria with generalized anasarca, and frequent hospitalizations, admitted this time with pneumonia, sepsis, hypoxic respiratory failure, and elevated troponin suggestive of type 2 myocardial infarction. For the last 24 hours, after having a detailed discussion with the family members, the patient is made comfort cares and end-of-life cares. He continues to be hypoxic. He is saturating only at 60% on room air. He continues to have apneic spells. is imminent at this juncture. We will continue with palliative care and comfort cares at this time. We will provide supportive care to the family members also. We will closely follow. [facility] /[id number]
--- NOTE | 2018-09-20 16:22 | DISCH ---
ADMITTING DIAGNOSES: 1. Pneumonia. 2. Sepsis. 3. Metabolic acidosis. 4. Generalized anasarca. 5. Type 2 myocardial infarction with underlying sepsis. 7. Chronic congestive heart failure. Immediate cause of acute hypoxic respiratory failure from pneumonia. HISTORY OF PRESENTING ILLNESS: Mr. Lewis Street is a 73-year-old male with a medical history significant for hypertension, hyperlipidemia, type 2 diabetes mellitus, glioblastoma multiforme in the past, nephrotic range proteinuria, generalized anasarca frequent hospitalizations admitted this time with complaints of increasing weakness, tiredness, and noted to have pneumonia with hypoxic respiratory failure and also noted to have elevated troponin at the time of admission, suggestive of type 2 myocardial infarction from demand ischemia from underlying sepsis. The patient's overall status declined and family members opted for comfort cares and end of life cares. The patient from acute hypoxic respiratory failure. His saturations were only at 60% on room air. The patient was made comfort cares and the patient on August 24, 2018. [facility] /[id number]
== END 2018-08-24 20:18 | disposition expired | DRG 871 ==
LOC: DL.ED 01:52 → DL.MS 04:21 → UNDOADMIN 04:21 → DL.MS 06:10
PROVIDERS: ADMIT Internal Medicine; ATTEND Internal Medicine
DX: A41.9 Sepsis, unspecified organism (principal); J96.01 Acute respiratory failure with hypoxia; J15.6 Pneumonia due to other Gram-negative bacteria; G93.40 Encephalopathy, unspecified; E87.0 Hyperosmolality and hypernatremia; I12.9 Hypertensive chronic kidney disease with stage 1 through stage 4 chronic kidney disease, or unspecified chronic kidney disease; Z51.5 Encounter for palliative care; E11.22 Type 2 diabetes mellitus with diabetic chronic kidney disease; Z66 Do not resuscitate; R74.8 Abnormal levels of other serum enzymes; N18.9 Chronic kidney disease, unspecified; J18.1 Lobar pneumonia, unspecified organism; R06.2 Wheezing; I95.9 Hypotension, unspecified; H91.90 Unspecified hearing loss, unspecified ear; H54.7 Unspecified visual loss; L98.8 Other specified disorders of the skin and subcutaneous tissue; I48.91 Unspecified atrial fibrillation; E78.00 Pure hypercholesterolemia, unspecified; R80.9 Proteinuria, unspecified; I10 Essential (primary) hypertension; Z85.841 Personal history of malignant neoplasm of brain; Z85.528 Personal history of other malignant neoplasm of kidney; Z87.891 Personal history of nicotine dependence; K21.9 Gastro-esophageal reflux disease without esophagitis; M54.9 Dorsalgia, unspecified; G89.29 Other chronic pain; Z90.89 Acquired absence of other organs; Z90.49 Acquired absence of other specified parts of digestive tract; F03.90 Unspecified dementia, unspecified severity, without behavioral disturbance, psychotic disturbance, mood disturbance, and anxiety; C71.9 Malignant neoplasm of brain, unspecified; R40.0 Somnolence; Z79.899 Other long term (current) drug therapy; Z79.82 Long term (current) use of aspirin; Z79.4 Long term (current) use of insulin
CPT/HCPCS: 36415; 51702; 71045; 80053; 83605; 83880; 84484; 85025; 87040; 93005; 96374; 96375; 99284; 99285; J1940; J2270; J2543; J7050; 80048; 82962; 83735; 84100; 84295; 85027; A9270-GY; C9113; J1100; J1650; J1815; J1953; J2060; J7030; J7042; J7060; P9047